=== PATIENT | male | born 1970 ===

== ENCOUNTER 2021-02-20 16:28 | Inpatient (IN) | payer MEDICAID, SELFPAY ==
--- NOTE | ~2021-02-20 | CT_ITS ---
EXAMINATION: CT ANGIOGRAM HEAD CLINICAL INFORMATION: Left MCA disease. Left MCA territory infarct by MRI. COMPARISON: Brain MRI from 02/21/2021. TECHNIQUE: Initial noncontrast chocolate dipper imaging of the head was performed. Noncontrast head CT was also performed. Test bolus sequences followed by intravenous administration 75 mL of Omnipaque 350. Helical imaging was performed in the axial plane from the skull base to the skull vertex. Delayed postcontrast imaging of the head was also performed. The data was processed at the charge histotechnologist's workstation for generation of MIP sequences. Angled MIPs and volume rendered reformatted images were also generated at an offline 3D workstation. Stenoses are assessed in accordance with NASCET criteria unless otherwise indicated. This CT examination was performed using dose optimization techniques as appropriate, variously including the following: *Automated exposure control. *Adjustment of mA and/or kV according to patient size (this includes techniques or standardized protocols for targeted exams where dose is matched to indication/reason for exam; i.e. extremities or head). *Use of iterative reconstruction technique. DLP: 2812 mGy-cm FINDINGS: CT Head: Multifocal evolving infarcts of the left frontoparietal lobes correlating with findings on recent MRI. No evidence of hemorrhagic conversion. No additional loss of mcwilliams-white matter differentiation. No evidence of acute intracranial hemorrhage. No additional attenuation abnormalities of the brain parenchyma. The ventricles are normal in size and configuration. No evidence for obstructive hydrocephalus. No abnormal mass effect or midline shift. No extra-axial fluid collections. No pathologic intra-axial enhancement. No acute soft tissue or osseous abnormalities. Moderate mucosal thickening of the paranasal sinuses. The mastoid air cells and middle ear cavities are clear. Moderate multifocal odontogenic enamel erosions. Brain CTA: Intracranial Internal Carotid Arteries: Mild calcific atherosclerotic disease of the intracranial internal carotid arteries without occlusion or flow-limiting stenosis. Normal contrast opacification of the petrous, cavernous, paraophthalmic, and supraclinoid segments of the internal carotid arteries without focal stenosis. Right Anterior Cerebral Artery: Normal A1 segment. Normal opacification of the distal segments of the KAE. Left Anterior Cerebral Artery: Normal A1 segment. Normal opacification of the distal segments of the KAE. Anterior Communicating Artery: Normal. Right Middle Cerebral Artery: Normal opacification of the M1 segment of the MCA without focal stenosis or occlusion. Normal arborization of the distal segments. Left Middle Cerebral Artery: Diminished opacification of the proximal M1 segment. There is high-grade stenosis of the distal M1 segment. Normal arborization of the distal segments. Right Vertebral Artery: Normal opacification of the V4 segment. Normal opacification of the proximal segments of the posterior inferior cerebellar artery. Left Vertebral Artery: Normal opacification of the V4 segment. Normal opacification of the proximal segments of the posterior inferior cerebellar artery. Basilar Artery: Normal opacification without focal stenosis or occlusion. Normal appearance of the proximal superior cerebellar arteries. Right Posterior Cerebral Artery: The P1 segment is diminutive. origin of the VISUAL DESIGNER with robust opacification of the posterior communicating artery. Normal opacification of the distal segments of the VISUAL DESIGNER. Left Posterior Cerebral Artery: Normal P1 segment. Normal opacification of the distal segments of the VISUAL DESIGNER. Normal opacification of the superior sagittal, straight, transverse, and sigmoid sinuses. CT/CT angio head IMPRESSION: 1. Evolving acute infarcts of the left frontoparietal lobes, correlating with findings on recent MRI. No hemorrhagic conversion. 2. High-grade stenosis of the distal M1 segment of the left MCA. 3. No additional proximal occlusion or flow-limiting stenosis of the major intracranial arteries.
--- NOTE | ~2021-02-20 | XR_ITS ---
EXAMINATION: XR CHEST CLINICAL INFORMATION: Aphasia. Chest pain. COMPARISON: None TECHNIQUE: 2 views of the chest were obtained. FINDINGS: The lungs are well expanded. There is no focal consolidation, edema, or effusion. No pneumothorax. The cardiomediastinal silhouette is within normal limits. No acute osseous abnormality. XR/XR chest 2V IMPRESSION: No acute pulmonary finding.
--- NOTE | ~2021-02-20 | US_ITS ---
EXAMINATION: US EXTRACRANIAL CAROTID DUPLEX, BILATERAL CLINICAL INFORMATION: CVA. Aphasia/speech difficulties COMPARISON: None TECHNIQUE: Real-time ultrasound and Doppler techniques (integrating B-mode 2-D vascular images, Doppler spectral analysis and color-flow Doppler imaging) were utilized to interrogate the extracranial carotid arteries, the vertebral arteries and proximal subclavian arteries bilaterally. The degree of stenosis is determined by criteria similar to NASCET. FINDINGS: Right Side: 1. There is no atherosclerotic plaque seen in the bifurcation/proximal ICA region. 2. The common carotid artery PSV proximally is 114 cm/s and distally 78 cm/s. 3. The proximal internal carotid artery velocities are 74 cm/s systolic and 20 cm/s diastolic. 4. The proximal external carotid artery PSV is 92 cm/s. 5. The vertebral artery shows antegrade flow. 6. The subclavian artery waveforms are normal. Left Side: 1. There is no atherosclerotic plaque seen in the bifurcation/proximal ICA region. 2. The common carotid artery PSV proximally is 134 cm/s and distally 84 cm/s. 3. The proximal internal carotid artery velocities are 55 cm/s systolic and 17 cm/s diastolic. 4. The proximal external carotid artery PSV is 99 cm/s. 5. The vertebral artery shows antegrade flow. 6. The subclavian artery waveforms are normal in waveform normal. US/US carotid duplex BI IMPRESSION: 1. RIGHT: Normal right internal carotid artery without atherosclerotic plaque or hemodynamically significant stenosis. 2. LEFT: Normal left internal carotid artery without atherosclerotic plaque or hemodynamically significant stenosis.
--- NOTE | ~2021-02-20 | MR_ITS ---
EXAMINATION: BRAIN MRI WITHOUT CONTRAST CLINICAL INFORMATION: Speech difficulty. COMPARISON: CT scan of the head 02/20/2021. TECHNIQUE: Multiplanar MR imaging of the brain was attempted. The patient was unable to tolerate imaging of the examination was terminated prematurely. The diagnostic accuracy of this examination is therefore limited. FINDINGS: There are multiple punctate foci of restricted diffusion involving the cortical mcwilliams matter of the left cerebral hemisphere and the left centrum semiovale that appear to be distributed between the major vascular territories. Intracranial vascular flow voids are grossly maintained. No intracranial mass effect or midline shift. No abnormal extra-axial collection. Lateral and third ventricles are normal. No hydrocephalus. Midline structures including the cervicomedullary junction are normal. MR/MR head/brain wo con IMPRESSION: The patient was unable to tolerate imaging. The examination was terminated prematurely and is therefore incomplete. There are however multiple acute infarcts involving the cortical mcwilliams matter of the left cervical hemisphere and left centrum semiovale that appear to be distributed between the major vascular territories suggesting watershed infarcts. Vascular flow voids within the head are grossly maintained. A carotid ultrasound or a CT angiogram of the neck can be obtained for better anatomic characterization of the vascular anatomy.
--- NOTE | ~2021-02-20 | CT_ITS ---
EXAMINATION: CT HEAD WITHOUT CONTRAST CLINICAL INFORMATION: Expressive aphasia for 3 days. Rule out stroke. COMPARISON: 08/14/2006 TECHNIQUE: Contiguous axial imaging was performed from the skull base to vertex without intravenous contrast. This CT examination was performed using dose optimization techniques as appropriate, variously including the following: * Automated exposure control * Adjustment of mA and/or kV according to patient size (this includes techniques or standardized protocols for targeted exams where dose is matched to indication/reason for exam; i.e. extremities or head) Use of iterative reconstruction technique DLP: 817 mGy-cm. FINDINGS: There is no evidence of acute intracranial hemorrhage or territorial infarction. No abnormal mass effect or midline shift is seen. [place] to white matter differentiation is well preserved. No extra-axial fluid collections are identified. No hydrocephalus. No significant volume loss. There is no abnormal attenuation within the brain parenchyma. The osseous structures and soft tissues are normal. Mucous retention cyst of the left sphenoid sinus. The mastoid air cells and visualized portions of the paranasal sinuses are otherwise well aerated. CT/CT head/brain wo con IMPRESSION: No acute intracranial pathology.
[2021-02-20 17:25] VITALS: BP 168/86; PULSE 81; RESP 16; TEMP 36.6; O2SAT 97; BMI 33.6
[2021-02-20 19:52] VITALS: BP 139/82; PULSE 83; O2SAT 99
--- NOTE | 2021-02-20 20:01 | ED.GENADULT ---
HPI - General Adult General Chief complaint: General Medical Stated complaint: PT unable to speak full words since Friday Time Seen by Provider: 02/20/21 17:29 Source: patient Mode of arrival: ambulatory Limitations: no limitations History of Present Illness HPI narrative: 50-year-old male who presents emergency department for evaluation of difficulty speaking. The patient states that he woke up Friday morning (3 days prior to evaluation) with difficulty finding words and difficulty speaking. He states that these symptoms have persisted but of not gotten worse. He was concerned that he did not improve so he came to the emergency department for evaluation. He states that approximately 1 week prior he did injure his back at work and is having a burning sensation in numbness in his right leg with no weakness and no loss of bowel or bladder control. He he denied headache, neck pain, fever, chills, chest pain, shortness of breath, dyspnea on exertion, abdominal pain, nausea, vomiting or diarrhea. The patient has not been vaccinated for COVID-19. He states that he has not had a COVID-19 infection during this pandemic. Related Data Allergies Allergy/AdvReac Type Severity Reaction Status Date / Time No Known Allergies Allergy Unverified 02/24/20 16:38 Review of Systems Review of Systems: Yes all other systems are reviewed and are negative Neurologic: Reports Abnormal speech present [facility] Past Medical History [facility] Narrative: Past medical history: None. Past surgical history: None. Social history: He denies tobacco use. He denies alcohol use. He states he occasionally smokes marijuana. Social History Social History Alcohol intake: current Alcohol intake frequency: holidays/special occasions only Patient Tobacco Use Status: Never used Tobacco Use of substances other than those prescribed or required for medical reasons: Yes Substance Use Type: Marijuana Substance Use Frequency: Occasionally Advance Directives: No Advance Directives Information Provided: Yes Physical Exam Vital Signs: Vital Signs: Last Vital Signs Temp 98 F 02/20/21 17:25 Pulse 83 02/20/21 19:52 Resp 16 02/20/21 17:25 BP 139/82 02/20/21 19:52 Pulse Ox 99 02/20/21 19:52 Body Mass Index 33.6 Const: Other: Very pleasant and cooperative male, the patient is able to speak however he occasionally has difficulty finding the appropriate words. He answers all questions appropriately. He does not appear to be in distress. Orientation/consciousness: oriented to person and oriented to place HENMT: Head: Yes normal to inspection, Yes normocephalic and Yes atraumatic Ears: external ears normal General nose exam: Normal external nose present Face and sinus: Yes normal facial exam Mouth: Normal oral and palatal mucosa present Throat: Yes posterior oropharynx normal Eyes: General: appearance normal, both eyes and all related structures Pupils: Equal, round and reactive pupils present Neck: Neck: Yes normal visual inspection, Yes no lymphadenopathy, Yes trachea midline and Yes supple Chest: Chest palpation & inspection: normal inspection of the chest and normal palpation of entire chest wall Resp: Effort & Inspection: normal respiratory effort and able to speak in complete sentences Auscultation: clear to auscultation bilaterally Cardio: Rate: regular rate Rhythm: regular rhythm Heart sounds: S1 normal heart sound present, S2 normal heart sound present and no murmurs GI: Inspection: Yes normal to inspection Palpation (GI): Soft to palpation, nontender and no guarding Auscultation: normal bowel sounds : General: Yes no CVA tenderness Back/Spine/Pelvis: Back: no CVA tenderness Skin: General skin exam: no rashes or lesions noted Neuro: General: oriented to person and oriented to place Cranial nerves: Yes CN's II-XII intact bilaterally and Yes Equal, round and reactive pupils present Cognition (Neuro): normal cognition Speech: Abnormal speech present and Expressive aphasia present (Patient occasionally has difficulty finding the appropriate words ) Motor exam (neuro): 5/5 motor strength present throughout Coordination: [id number] test normal and [id number] test normal Extrem: General: Yes normal to inspection Psych: Appearance: grossly normal Affect: normal affect Attitude: cooperative Thought process: Normal thought process present Thought content: Normal thought content present NIH Stroke Scale Internal: Other (At the time of my initial evaluation) Level of Consciousness: Alert Level of Consciousness Questions: Answers both questions correctly Level of Consciousness Commands: Performs both tasks correctly Best Gaze: Normal Visual: No visual loss Facial Palsy: Normal Motor Arm (Right): No drift Motor Arm (Left): No drift Motor Leg (Right): No drift Motor Leg (Left): No drift Limb Ataxia: Absent Sensory: Normal Best Language: Mild to moderate aphasia Dysarthia: Normal Extinction and Inattention: No abnormality Score: 1 Course Course Course Narrative: 50-year-old male who presents emergency department for evaluation of an expressive aphasia which states started on Friday morning (3 days prior to evaluation). States that he woke up having difficulty finding words and difficulty talking. The symptoms have persisted for 3 days but have not gotten worse. The patient did complain of discomfort in his right lower extremity which she believes is secondary to a back injury that occurred 1 week prior. Patient's vital signs were normal. Physical examination did reveal difficulty with word-finding but his speech is mainly comprehensible and appropriate. His exam was otherwise unremarkable. IM the patient may have had a stroke 3 days prior causing his aphasia, cerebral tumor also needs to be considered. I did order a stroke workup on the patient. 2151: CT scan and the head was unremarkable with no evidence of stroke or mass effect. Chest x-ray was normal. Laboratory evaluation was normal. Twelve EKG 12 EKG revealed no arrhythmia/atrial fibrillation. I am concerned the patient may have had a stroke however he has had the symptoms for 3 days therefore is not a thrombolytic candidate. The patient was given aspirin 162 mg orally. I did discuss the patient's presentation with the covering hospitalist Dr. Blank and the patient will be admitted [place] [facility] [place]. Medical Decision Making Lab Data Result diagrams: 02/20/21 21:15 02/20/21 21:15 Labs: Lab Results 02/20/21 02/20/21 02/20/21 Range/Units 21:15 21:15 21:15 WBC 7.7 (4.8-10.8) X10*3/uL RBC 4.75 (4.60-5.80) X10*6/uL Hgb 14.7 (14.0-18.0) g/dl Hct 43.7 (42-52) % MCV 92.0 (80-98) fL MCH 30.9 (27.0-33.0) pg MCHC 33.6 (31.0-36.0) g/dl RDW 12.8 (11.0-16.0) % Plt Count 296 (160-400) X10*3/uL MPV 9.9 (9.4-12.4) fL Immature Gran % (Auto) 0.1 (0.0-0.4) % Neut % (Auto) 57.1 (45-73) % Lymph % (Auto) 32.6 (20-40) % [place] % (Auto) 7.7 (2-11) % Eos % (Auto) 2.1 (0-4) % Baso % (Auto) 0.4 (0-2) % Lymph # (Auto) 2.5 (1.2-4.9) X10*3/uL [place] # (Auto) 0.6 (0.1-1.2) X10*3/uL Eos # (Auto) 0.2 (0.0-0.4) X10*3/uL Baso # (Auto) 0.0 (0.0-0.2) X10*3/uL Abs Immat Gran (auto) 0.01 (0.00-0.03) X10*3/uL Absolute Neuts (auto) 4.4 (2.0-8.3) X10*3/uL Absolute Nucleated RBC 0.000 (0.0-0.012) X10*3/uL Nucleated RBC % (auto) 0.0 (0.0-0.2) /100WBC PT 12.2 (9.9-13.0) SEC INR 1.1 (0.9-1.1) APTT 36.4 (24.1-38.0) SEC Sodium 141 (135-145) mmol/L Potassium 4.1 (3.3-5.1) mmol/L Chloride 106 (96-108) mmol/L Carbon Dioxide 27 (22-29) mmol/L Anion Gap 12 (12-20) BUN 11 (9-16) mg/dL Creatinine 0.93 (0.5-1.4) mg/dL Estim Creat Clear Calc 103.3 Estimated GFR > 60 Random Glucose 111 (60-115) mg/dL Calcium 9.3 (8.4-10.2) mg/dL Total Bilirubin 0.4 (0.0-1.0) mg/dL AST 21 (5-37) U/L ALT 31 (0-40) U/L Alkaline Phosphatase 99 (39-117) U/L Troponin I High Sens (<3.5-35.0) ng/L Total Protein 7.3 (6.5-8.0) g/dL Albumin 3.9 (3.5-5.0) g/dL Lipase 60 (8-78) U/L Ethyl Alcohol mg/dL 02/20/21 02/20/21 Range/Units 21:15 21:15 WBC (4.8-10.8) X10*3/uL RBC (4.60-5.80) X10*6/uL Hgb (14.0-18.0) g/dl Hct (42-52) % MCV (80-98) fL MCH (27.0-33.0) pg MCHC (31.0-36.0) g/dl RDW (11.0-16.0) % Plt Count (160-400) X10*3/uL MPV (9.4-12.4) fL Immature Gran % (Auto) (0.0-0.4) % Neut % (Auto) (45-73) % Lymph % (Auto) (20-40) % [place] % (Auto) (2-11) % Eos % (Auto) (0-4) % Baso % (Auto) (0-2) % Lymph # (Auto) (1.2-4.9) X10*3/uL [place] # (Auto) (0.1-1.2) X10*3/uL Eos # (Auto) (0.0-0.4) X10*3/uL Baso # (Auto) (0.0-0.2) X10*3/uL Abs Immat Gran (auto) (0.00-0.03) X10*3/uL Absolute Neuts (auto) (2.0-8.3) X10*3/uL Absolute Nucleated RBC (0.0-0.012) X10*3/uL Nucleated RBC % (auto) (0.0-0.2) /100WBC PT (9.9-13.0) SEC INR (0.9-1.1) APTT (24.1-38.0) SEC Sodium (135-145) mmol/L Potassium (3.3-5.1) mmol/L Chloride (96-108) mmol/L Carbon Dioxide (22-29) mmol/L Anion Gap (12-20) BUN (9-16) mg/dL Creatinine (0.5-1.4) mg/dL Estim Creat Clear Calc Estimated GFR Random Glucose (60-115) mg/dL Calcium (8.4-10.2) mg/dL Total Bilirubin (0.0-1.0) mg/dL AST (5-37) U/L ALT (0-40) U/L Alkaline Phosphatase (39-117) U/L Troponin I High Sens < 3.5 (<3.5-35.0) ng/L Total Protein (6.5-8.0) g/dL Albumin (3.5-5.0) g/dL Lipase (8-78) U/L Ethyl Alcohol < 10 mg/dL
--- NOTE | 2021-02-20 20:03 | ECG_ITS ---
Test Reason : AMS Blood Pressure : / mmHG Vent. Rate : 076 BPM Atrial Rate : 076 BPM P-R Int : 156 ms QRS Dur : 082 ms QT Int : 398 ms P-R-T Axes : 030 -07 009 degrees QTc Int : 447 ms Normal sinus rhythm Normal ECG No previous ECGs available Referred By: Terrance Moya Electronically Signed By:HENNA FLAHERTY
[2021-02-20 21:20] LABS: MANUAL DIFF FLAG NO
[2021-02-20 21:27] LABS: INTERNATIONAL NORM RATIO 1.1 (0.9-1.1); Prothrombin Time 12.2 SEC (9.9-13.0)
[2021-02-20 21:28] LABS: Basophils Percent Auto 0.4 % (0-2); Eosinophils Absolute Auto 0.2 X10*3/uL (0.0-0.4); Eosinophils Percent Auto 2.1 % (0-4); Hematocrit 43.7 % (42-52); Hemoglobin 14.7 g/dl (14.0-18.0); Imm Gran Abs Auto 0.01 X10*3/uL (0.00-0.03); Imm Gran Pct Auto 0.1 % (0.0-0.4); Lymphocytes Absolute Auto 2.5 X10*3/uL (1.2-4.9); Lymphocytes Percent Auto 32.6 % (20-40); Mean Corpuscular HGB Conc 33.6 g/dl (31.0-36.0); Mean Corpuscular Hemoglobin 30.9 pg (27.0-33.0); Mean Platelet Volume 9.9 fL (9.4-12.4); Monocytes Absolute Auto 0.6 X10*3/uL (0.1-1.2); Monocytes Percent Auto 7.7 % (2-11); Neutrophils Absolute Auto 4.4 X10*3/uL (2.0-8.3); Neutrophils Percent Auto 57.1 % (45-73); Platelet Count 296 X10*3/uL (160-400); Red Blood Count 4.75 X10*6/uL (4.60-5.80); Red Cell Distribution Width 12.8 % (11.0-16.0); White Blood Count 7.7 X10*3/uL (4.8-10.8)
[2021-02-20 21:30] LABS: Partial Thromboplastin Time 36.4 SEC (24.1-38.0)
[2021-02-20 21:38] LABS: Ethanol < 10 mg/dL
[2021-02-20 21:42] LABS: Alanine Aminotransferase 31 U/L (0-40); Albumin Level 3.9 g/dL (3.5-5.0); Alkaline Phosphatase 99 U/L (39-117); Anion Gap 12 (12-20); Aspartate Amino Transferase 21 U/L (5-37); Bilirubin Total 0.4 mg/dL (0.0-1.0); Blood Urea Nitrogen 11 mg/dL (9-16); Calcium 9.3 mg/dL (8.4-10.2); Carbon Dioxide 27 mmol/L (22-29); Chloride 106 mmol/L (96-108); Creatinine Clr Calc Pharmacy 103.3; Estimated Glomerular Filt Rate > 60; Glucose Random 111 mg/dL (60-115); Lipase 60 U/L (8-78); Potassium 4.1 mmol/L (3.3-5.1); Sodium 141 mmol/L (135-145); Total Protein 7.3 g/dL (6.5-8.0)
[2021-02-20 21:44] LABS: Troponin-I High Sensitivity < 3.5 ng/L (<3.5-35.0)
[2021-02-20 22:01] LABS: TSH reflex Free T4 0.94 uIU/mL (0.32-4.0)
--- NOTE | 2021-02-20 22:07 | PM.IMHP ---
History of Present Illness Date of Service: 02/20/21 Chief Complaint: Word-finding difficulty 50-year-old male with no significant past medical history presented to the hospital with a chief complaint of word-finding difficulty. Patient reported that on last Friday he was doing fine but on Friday morning when he woke up he was difficulty with finding words. Initially thought the symptoms would go away but the symptoms have been continued and not improving decided to come to the ER for further evaluation. Denies any oral pain; denies any swallowing difficulty; mentions that he is able to comprehend but he is listening but unable to put out the words and does difficulty finding words; Denies any family history of CV are heart disease. Denies any toxic habits including smoking. Patient reports that for the past 1 week has mild left lower extremity weakness; denies any low back pain. Denies any trauma. ER course Per team patient noted to have word-finding difficulty; CT head showed no acute findings; admitted to the hospital further management PMFSH Social History Alcohol intake: current Alcohol intake frequency: holidays/special occasions only Patient Tobacco Use Status: Never used Tobacco Use of substances other than those prescribed or required for medical reasons: Yes Substance Use Type: Marijuana Substance Use Frequency: Occasionally Advance Directives: No Advance Directives Information Provided: Yes Meds Allergies Allergy/AdvReac Type Severity Reaction Status Date / Time No Known Allergies Allergy Unverified 02/24/20 16:38 Physical Exam Vital Signs and Narrative: Vital Signs: Last Vital Signs Temp 98 F 02/20/21 17:25 Pulse 83 02/20/21 19:52 Resp 16 02/20/21 17:25 BP 139/82 02/20/21 19:52 Pulse Ox 99 02/20/21 19:52 Body Mass Index 33.6 Gen: Appears be in no acute distress HEENT: NCAT, Moist mucosa. Pulmonary: Vesicular breath sounds, fair air entry CVS: Normal S1-S2 Abdomen: BS+, Soft, Nontender Extremities: Warm well perfused Neuro: Alert and awake. Oriented x3; ; strength and sensation intact throughout. Speech is started. Patient able to comprehend but unable to put out the words. In Results Labs CBC and Chem 7: 02/20/21 21:15 02/20/21 21:15 Labs: Laboratory Results - last 24 hr 02/20/21 02/20/21 02/20/21 21:15 21:15 21:15 MCV 92.0 MCH 30.9 MCHC 33.6 RDW 12.8 Plt Count 296 MPV 9.9 Immature Gran % (Auto) 0.1 Neut % (Auto) 57.1 Lymph % (Auto) 32.6 [place] % (Auto) 7.7 Eos % (Auto) 2.1 Baso % (Auto) 0.4 Lymph # (Auto) 2.5 [place] # (Auto) 0.6 Eos # (Auto) 0.2 Baso # (Auto) 0.0 Abs Immat Gran (auto) 0.01 Absolute Neuts (auto) 4.4 Absolute Nucleated RBC 0.000 Nucleated RBC % (auto) 0.0 PT 12.2 INR 1.1 APTT 36.4 Anion Gap 12 Estim Creat Clear Calc 103.3 Estimated GFR > 60 Random Glucose 111 Calcium 9.3 Total Bilirubin 0.4 AST 21 ALT 31 Alkaline Phosphatase 99 Troponin I High Sens Total Protein 7.3 Albumin 3.9 Lipase 60 TSH 0.94 Ethyl Alcohol 02/20/21 02/20/21 21:15 21:15 MCV MCH MCHC RDW Plt Count MPV Immature Gran % (Auto) Neut % (Auto) Lymph % (Auto) [place] % (Auto) Eos % (Auto) Baso % (Auto) Lymph # (Auto) [place] # (Auto) Eos # (Auto) Baso # (Auto) Abs Immat Gran (auto) Absolute Neuts (auto) Absolute Nucleated RBC Nucleated RBC % (auto) PT INR APTT Anion Gap Estim Creat Clear Calc Estimated GFR Random Glucose Calcium Total Bilirubin AST ALT Alkaline Phosphatase Troponin I High Sens < 3.5 Total Protein Albumin Lipase TSH Ethyl Alcohol < 10 Imaging Radiologist's Impressions: Impressions Chest X-Ray 02/20/21 20:03 IMPRESSION: No acute pulmonary finding. Head CT 02/20/21 20:03 IMPRESSION: No acute intracranial pathology. Assessment and Plan (1) Word finding difficulty: Status: Acute 50-year-old male with no significant past medical history presented to the hospital with a chief complaint word-finding difficulty since last Friday. Word-finding difficulty: Concern for CVA. CT head showed no acute findings. Patient out of went over tPA. Rest of the exam within normal limits. Speech And swallow eval Dysphagia screen Echocardiogram bubble study Telemetry Cycle cardiac enzymes Will send hemoglobin A1c, lipid profile, TSH Continue aspirin Neurology consult Left leg weakness/numbness: Exam within normal limits. Neurology consulted as mentioned. No focal spinal tenderness noted. DVT prophylaxis: SCD boots Code status: Full code Quality Stroke Does the patient have a stroke diagnosis?: No VTE Prior VTE?: No VTE Risk Level:: Medical - moderate - high VTE Device Contraindication: N/A - Device Ordered VTE Drug Contraindication: Treatment Not Indicated
[2021-02-20 22:13] LABS: COVID-19 Test Negative (Negative); IDNOW Serial# 9DD0AD1C
[2021-02-20] MEDS: Aspirin 81 MG TAB.CHEW 162 MG PO (22:49)
[2021-02-20 22:53] VITALS: PULSE 81; RESP 17; O2SAT 98
[2021-02-20 23:05] LABS: Appearance Urine CLEAR; Color Urine YELLOW; Glucose Urine UA NEG (NEG); Leukocyte Esterase Urine NEG (NEG); Nitrite Urine NEG (NEG); Urine Blood NEG (NEG); Urine Ketones NEG (NEG); Urine Protein NEG (NEG-TRACE)
[2021-02-20 23:15] LABS: Amphetamine Screen Urine Not Detected (Not Detect); Barbiturates, Urine Not Detected (Not Detect); Benzodiazepines Screen Urine Not Detected (Not Detect); Cannabinoid Screen Urine POSITIVE (Not Detect); Cocaine Screen Urine POSITIVE (Not Detect); Fentanyl, urine Not Detected (Not Detect); Opiate Screen Urine Not Detected (Not Detect); Phencyclidine Screen Urine Not Detected (Not Detect)
[2021-02-20 23:23] LABS: Troponin-I High Sensitivity < 3.5 ng/L (<3.5-35.0)
[2021-02-21] VITALS (7 sets, daily range): BP systolic 124–156; BP diastolic 76–94; PULSE 78–84; RESP 16–20; TEMP 36.3–36.7; O2SAT 97–99; BMI 33.6
--- NOTE | 2021-02-21 06:10 | PC.NURSE ---
pt talking in full sentences but still finds it difficulty finding his words. pt states its a no change since his arrival.
[2021-02-21 06:48] LABS: MANUAL DIFF FLAG NO
[2021-02-21 06:56] LABS: Basophils Percent Auto 0.3 % (0-2); Eosinophils Absolute Auto 0.2 X10*3/uL (0.0-0.4); Eosinophils Percent Auto 2.3 % (0-4); Hemoglobin 14.4 g/dl (14.0-18.0); Imm Gran Abs Auto 0.02 X10*3/uL (0.00-0.03); Imm Gran Pct Auto 0.3 % (0.0-0.4); Lymphocytes Percent Auto 38.9 % (20-40); Mean Corpuscular HGB Conc 33.5 g/dl (31.0-36.0); Mean Corpuscular Hemoglobin 30.4 pg (27.0-33.0); Mean Corpuscular Volume 90.9 fL (80-98); Mean Platelet Volume 10.2 fL (9.4-12.4); Monocytes Absolute Auto 0.6 X10*3/uL (0.1-1.2); Monocytes Percent Auto 7.9 % (2-11); Neutrophils Absolute Auto 3.9 X10*3/uL (2.0-8.3); Neutrophils Percent Auto 50.3 % (45-73); Platelet Count 307 X10*3/uL (160-400); Red Blood Count 4.73 X10*6/uL (4.60-5.80); Red Cell Distribution Width 12.7 % (11.0-16.0); White Blood Count 7.8 X10*3/uL (4.8-10.8)
[2021-02-21 07:12] LABS: Anion Gap 12 (12-20); Blood Urea Nitrogen 9 mg/dL (9-16); Calcium 8.8 mg/dL (8.4-10.2); Carbon Dioxide 24 mmol/L (22-29); Chloride 108 mmol/L (96-108); Cholesterol 193 mg/dL; Creatinine Clr Calc Pharmacy 115.8; Estimated Glomerular Filt Rate > 60; Glucose Random 110 mg/dL (60-115); HDL Cholesterol 40 mg/dL; LDL Cholesterol Calculated 130 mg/dl; Potassium 3.6 mmol/L (3.3-5.1); Sodium 140 mmol/L (135-145); Triglycerides 119 mg/dL
[2021-02-21 08:24] LABS: Estimated Average Glucose 143 mg/dL; Hemoglobin A1c % 6.6 %
--- NOTE | 2021-02-21 09:56 | P.CNNE_ITS ---
History of Present Illness Data of Consult Service Date: 02/21/21 Primary Care Provider: Unknown Physician HPI Reason for consult: Word-finding difficulty 50 years old man who came to hospital stating that the other day he woke up and could not speak. He said that no were was coming out. He stated that this was still the case. He denied any associated headache numbness paralysis dizziness or visual symptom or any other symptom. There was no mental confusion. Review of Systems Review of Systems: No recent cold or flu-like symptoms. [facility] Social History Social History Alcohol intake: current Alcohol intake frequency: holidays/special occasions only Patient Tobacco Use Status: Never used Tobacco Use of substances other than those prescribed or required for medical reasons: Yes Substance Use Type: Marijuana Substance Use Frequency: Occasionally Advance Directives: No Advance Directives Information Provided: Yes Meds Allergies Allergy/AdvReac Type Severity Reaction Status Date / Time No Known Allergies Allergy Unverified 02/24/20 16:38 Active Medications: Current Medications Generic Name Dose Route Start Last Admin Trade Name Freq PRN Reason Stop Dose Admin Acetaminophen 650 mg 02/20/21 22:03 Acetaminophen 325 Mg Tablet PO Q6H PRN Pain, Mild (Pain Scale 1-3) Aspirin 81 mg 02/21/21 09:00 Aspirin Enteric Coated 81 Mg Tablet.Dr PO DAILY [facility] Melatonin 6 mg 02/20/21 22:03 Melatonin 3 Mg Tablet PO BEDTIME PRN Insomnia Senna 17.2 mg 02/20/21 22:03 Sennosides 8.6 Mg Tablet PO BEDTIME PRN Constipation Sodium Chloride 3 ml 02/21/21 00:00 02/21/21 00:10 0.9 % Sodium Chloride Flush 3 Ml Syringe IVFLUSH Not Given QSHIFT [facility] Physical Exam Vital Signs: Vital Signs: Last Vital Signs Temp 98.0 F 02/21/21 07:15 Pulse 81 02/21/21 07:43 Resp 16 02/21/21 07:15 BP 124/77 02/21/21 07:43 Pulse Ox 98 02/21/21 07:43 Body Mass Index 33.6 Neuro: Other: He was alert and awake with intermittently sometime good fluency and spontaneity of speech and sometime decrease. He was able to name and repeat. Sometime his speech was dysarthric. Face was symmetrical. Visual boone are full. There was no pronator drift. Deep tendon reflexes were trace to absent with flexor plantars. Results Labs CBC & Chem 7: 02/21/21 06:23 02/21/21 06:23 Labs: Short CBC 02/20/21 02/21/21 Range/Units 21:15 06:23 WBC 7.7 7.8 (4.8-10.8) X10*3/uL Hgb 14.7 14.4 (14.0-18.0) g/dl Hct 43.7 43.0 (42-52) % Plt Count 296 307 (160-400) X10*3/uL BMP 02/20/21 02/21/21 21:15 06:23 Sodium 141 140 Potassium 4.1 3.6 Chloride 106 108 Carbon Dioxide 27 24 BUN 11 9 Creatinine 0.93 0.83 Calcium 9.3 8.8 Liver Function 02/20/21 Range/Units 21:15 Total Bilirubin 0.4 (0.0-1.0) mg/dL AST 21 (5-37) U/L ALT 31 (0-40) U/L Alkaline Phosphatase 99 (39-117) U/L Albumin 3.9 (3.5-5.0) g/dL Urine 02/20/21 Range/Units 22:49 Urine Color YELLOW Urine Appearance CLEAR Urine pH 6.0 (5.0-8.0) Ur Specific [place] 1.010 (1.005-1.025) Urine Protein NEG (NEG-TRACE) MG/DL Urine Glucose (UA) NEG (NEG) MG/DL His head CT without contrast did not reveal any significant abnormality. Carotid ultrasound wet reading was normal. Assessment and Plan (1) Word finding difficulty: Status: Acute 50 years old man with unclear etiology of complained of word-finding difficulty with fluctuating examination. Possibilities would include a structural lesion or psychological. For definition I would suggest obtaining a noncontrast MRI of brain. Procedures Date of Service Date of Service: 02/21/21
--- NOTE | 2021-02-21 10:24 | MHC.CM.PN ---
Met with patient in regards to discharge planning. Patient lives with his , ambulates independently and had no services prior to coming to the hospital. Patient currently works but has no insurance yet because he hasn't been employed long enough. Financial counselors aware and will try to see the patient. Has no PCP. Received no Covid vaccines and has no HCP. Patient's will transport him home when medically stable. Obs notice explained and signed. Continue to monitor for d/c needs.
[2021-02-21] MEDS: Aspirin Enteric Coated 81 MG TABLET.DR PO (11:23)
[2021-02-21] MEDS: 0.9 % Sodium Chloride Flush 3 ML SYRINGE IVFLUSH ×3 (11:24→20:48)
--- NOTE | 2021-02-21 14:43 | MHC.STROKE ---
Addendum entered by Kadie Lovell RN 02/22/21 14:09: Patient was ambulatory, VTE prophylaxis not indicated. Seen by Care Team due to Cocaine (see their note). Patient being discharged today, speech therapy recommended. Original Note: I MET THE PATIENT TODAY AND WE DISCUSSED HIS DIAGNOSIS AND HIS COCAINE USE. HE IS REFUSING ANY HELP WITH THE DRUG USE. I REVIEWED THE RISK FACTORS, HE'S ON AN ASA. ASSESSMENT FOR REHAB DONE. SPEECH IS INDICATED. RECOMMEND STATIN LDL 130. DR PHILLIPS NOTIFIED.
--- NOTE | 2021-02-21 15:07 | HO.PM.IMPN ---
Subjective Subjective Date of Service: 02/21/21 Interval History: expressive aphasia dysarthria no leg or arm weakness re: cocaine abuse: never again Review of Systems Review of Systems: Yes all other systems are reviewed and are negative Physical Exam Vital Signs: Vital Signs: Last Vital Signs Temp 97.4 F 02/21/21 11:16 Pulse 79 02/21/21 11:16 Resp 20 02/21/21 11:16 BP 156/89 H 02/21/21 11:16 Pulse Ox 99 02/21/21 11:16 Body Mass Index 33.6 Gen: in no acute distress HEENT: sclera anicteric, moist mucus membranes Neck: supple Lungs: clear to auscultation bilaterally Heart: regular rate and rhythm, no murmurs Abd: soft, non-tender, non-distended, obese Ext: no edema Skin: warm/well-perfused Neuro: alert and oriented x3, mild expressive aphasia, dysarthric Psych: appropriate affect Objective Data Active Medications Acetaminophen (Acetaminophen 325 Mg Tablet) 650 mg PO Q6H PRN PRN Reason: Pain, Mild (Pain Scale 1-3) Aspirin (Aspirin Enteric Coated 81 Mg Tablet.) 81 mg PO DAILY [facility] Last Admin: 02/21/21 11:23 Dose: 81 mg Documented by: LALO Atorvastatin Calcium (Atorvastatin Calcium 40 Mg Tablet) 40 mg PO BEDTIME [facility] Melatonin (Melatonin 3 Mg Tablet) 6 mg PO BEDTIME PRN PRN Reason: Insomnia Senna (Sennosides 8.6 Mg Tablet) 17.2 mg PO BEDTIME PRN PRN Reason: Constipation Sodium Chloride (0.9 % Sodium Chloride Flush 3 Ml Syringe) 3 ml IVFLUSH QSHIFT [facility] Last Admin: 02/21/21 11:24 Dose: 3 ml Documented by: LALO Labs CBC & Chem 7: 02/21/21 06:23 02/21/21 06:23 Labs: Laboratory Results - last 24 hr 02/20/21 02/20/21 02/20/21 21:15 21:15 21:15 MCV 92.0 MCH 30.9 MCHC 33.6 RDW 12.8 Plt Count 296 MPV 9.9 Immature Gran % (Auto) 0.1 Neut % (Auto) 57.1 Lymph % (Auto) 32.6 [place] % (Auto) 7.7 Eos % (Auto) 2.1 Baso % (Auto) 0.4 Lymph # (Auto) 2.5 [place] # (Auto) 0.6 Eos # (Auto) 0.2 Baso # (Auto) 0.0 Abs Immat Gran (auto) 0.01 Absolute Neuts (auto) 4.4 Absolute Nucleated RBC 0.000 Nucleated RBC % (auto) 0.0 PT 12.2 INR 1.1 APTT 36.4 Anion Gap 12 Estim Creat Clear Calc 103.3 Estimated GFR > 60 Random Glucose 111 Estimat Average Glucose Hemoglobin A1c % Calcium 9.3 Total Bilirubin 0.4 AST 21 ALT 31 Alkaline Phosphatase 99 Troponin I High Sens Total Protein 7.3 Albumin 3.9 Triglycerides Cholesterol LDL Cholesterol, Calc HDL Cholesterol Lipase 60 TSH 0.94 Urine Color Urine Appearance Urine pH Ur Specific [place] Urine Protein Urine Glucose (UA) Urine Ketones Urine Blood Urine Nitrite Ur Leukocyte Esterase Urine Opiates Screen Urine Fentanyl Screen Ur Barbiturates Screen Ur Phencyclidine Scrn Ur Amphetamines Screen U Benzodiazepines Scrn Urine Cocaine Screen U Marijuana (THC) Screen Ethyl Alcohol COVID-19 (VINNIE) COVID-[employer] Com 02/20/21 02/20/21 02/20/21 21:15 21:15 21:15 MCV MCH MCHC RDW Plt Count MPV Immature Gran % (Auto) Neut % (Auto) Lymph % (Auto) [place] % (Auto) Eos % (Auto) Baso % (Auto) Lymph # (Auto) [place] # (Auto) Eos # (Auto) Baso # (Auto) Abs Immat Gran (auto) Absolute Neuts (auto) Absolute Nucleated RBC Nucleated RBC % (auto) PT INR APTT Anion Gap Estim Creat Clear Calc Estimated GFR Random Glucose Estimat Average Glucose Hemoglobin A1c % Calcium Total Bilirubin AST ALT Alkaline Phosphatase Troponin I High Sens < 3.5 Total Protein Albumin Triglycerides Cholesterol LDL Cholesterol, Calc HDL Cholesterol Lipase TSH Urine Color Urine Appearance Urine pH Ur Specific [place] Urine Protein Urine Glucose (UA) Urine Ketones Urine Blood Urine Nitrite Ur Leukocyte Esterase Urine Opiates Screen Urine Fentanyl Screen Ur Barbiturates Screen Ur Phencyclidine Scrn Ur Amphetamines Screen U Benzodiazepines Scrn Urine Cocaine Screen U Marijuana (THC) Screen Ethyl Alcohol < 10 COVID-19 (VINNIE) Negative COVID-19 Clin Com See Note 02/20/21 02/20/21 02/20/21 22:49 22:49 22:52 MCV MCH MCHC RDW Plt Count MPV Immature Gran % (Auto) Neut % (Auto) Lymph % (Auto) [place] % (Auto) Eos % (Auto) Baso % (Auto) Lymph # (Auto) [place] # (Auto) Eos # (Auto) Baso # (Auto) Abs Immat Gran (auto) Absolute Neuts (auto) Absolute Nucleated RBC Nucleated RBC % (auto) PT INR APTT Anion Gap Estim Creat Clear Calc Estimated GFR Random Glucose Estimat Average Glucose Hemoglobin A1c % Calcium Total Bilirubin AST ALT Alkaline Phosphatase Troponin I High Sens < 3.5 Total Protein Albumin Triglycerides Cholesterol LDL Cholesterol, Calc HDL Cholesterol Lipase TSH Urine Color YELLOW Urine Appearance CLEAR Urine pH 6.0 Ur Specific [place] 1.010 Urine Protein NEG Urine Glucose (UA) NEG Urine Ketones NEG Urine Blood NEG Urine Nitrite NEG Ur Leukocyte Esterase NEG Urine Opiates Screen Not Detected Urine Fentanyl Screen Not Detected Ur Barbiturates Screen Not Detected Ur Phencyclidine Scrn Not Detected Ur Amphetamines Screen Not Detected U Benzodiazepines Scrn Not Detected Urine Cocaine Screen POSITIVE H U Marijuana (THC) Screen POSITIVE H Ethyl Alcohol COVID-19 (VINNIE) COVID-19 Clin Com 02/21/21 02/21/21 02/21/21 06:23 06:23 06:23 MCV 90.9 MCH 30.4 MCHC 33.5 RDW 12.7 Plt Count 307 MPV 10.2 Immature Gran % (Auto) 0.3 Neut % (Auto) 50.3 Lymph % (Auto) 38.9 [place] % (Auto) 7.9 Eos % (Auto) 2.3 Baso % (Auto) 0.3 Lymph # (Auto) 3.0 [place] # (Auto) 0.6 Eos # (Auto) 0.2 Baso # (Auto) 0.0 Abs Immat Gran (auto) 0.02 Absolute Neuts (auto) 3.9 Absolute Nucleated RBC 0.000 Nucleated RBC % (auto) 0.0 PT INR APTT Anion Gap 12 Estim Creat Clear Calc 115.8 Estimated GFR > 60 Random Glucose 110 Estimat Average Glucose 143 Hemoglobin A1c % 6.6 Calcium 8.8 Total Bilirubin AST ALT Alkaline Phosphatase Troponin I High Sens Total Protein Albumin Triglycerides 119 Cholesterol 193 LDL Cholesterol, Calc 130 HDL Cholesterol 40 Lipase TSH Urine Color Urine Appearance Urine pH Ur Specific [place] Urine Protein Urine Glucose (UA) Urine Ketones Urine Blood Urine Nitrite Ur Leukocyte Esterase Urine Opiates Screen Urine Fentanyl Screen Ur Barbiturates Screen Ur Phencyclidine Scrn Ur Amphetamines Screen U Benzodiazepines Scrn Urine Cocaine Screen U Marijuana (THC) Screen Ethyl Alcohol COVID-19 (VINNIE) COVID-19 Clin Com Laboratory Results WBC 7.8 X10*3/uL (4.8-10.8) 02/21/21 06:23 RBC 4.73 X10*6/uL (4.60-5.80) 02/21/21 06:23 Hgb 14.4 g/dl (14.0-18.0) 02/21/21 06:23 Hct 43.0 % (42-52) 02/21/21 06: MCV 90.9 fL (80-98) 02/21/21 06:23 MCH 30.4 pg (27.0-33.0) 02/21/21 06: MCHC 33.5 g/dl (31.0-36.0) 02/21/21 06: RDW 12.7 % (11.0-16.0) 02/21/21 06:23 Plt Count 307 X10*3/uL (160-400) 02/21/21 06:23 MPV 10.2 fL (9.4-12.4) 02/21/21 06:23 Immature Gran % (Auto) 0.3 % (0.0-0.4) 02/21/21 06: Neut % (Auto) 50.3 % (45-73) 02/21/21 06: Lymph % (Auto) 38.9 % (20-40) 02/21/21 06:23 [place] % (Auto) 7.9 % (2-11) 02/21/21 06:23 Eos % (Auto) 2.3 % (0-4) 02/21/21 06:23 Baso % (Auto) 0.3 % (0-2) 02/21/21 06:23 Lymph # (Auto) 3.0 X10*3/uL (1.2-4.9) 02/21/21 06:23 [place] # (Auto) 0.6 X10*3/uL (0.1-1.2) 02/21/21 06:23 Eos # (Auto) 0.2 X10*3/uL (0.0-0.4) 02/21/21 06:23 Baso # (Auto) 0.0 X10*3/uL (0.0-0.2) 02/21/21 06:23 Abs Immat Gran (auto) 0.02 X10*3/uL (0.00-0.03) 02/21/21 06:23 Absolute Neuts (auto) 3.9 X10*3/uL (2.0-8.3) 02/21/21 06:23 Absolute Nucleated RBC 0.000 X10*3/uL (0.0-0.012) 02/21/21 06:23 Nucleated RBC % (auto) 0.0 /100WBC (0.0-0.2) 02/21/21 06:23 PT 12.2 SEC (9.9-13.0) 02/20/21 21:15 INR 1.1 (0.9-1.1) 02/20/21 21:15 APTT 36.4 SEC (24.1-38.0) 02/20/21 21:15 Sodium 140 mmol/L (135-145) 02/21/21 06:23 Potassium 3.6 mmol/L (3.3-5.1) 02/21/21 06:23 Chloride 108 mmol/L (96-108) 02/21/21 06:23 Carbon Dioxide 24 mmol/L (22-29) 02/21/21 06:23 Anion Gap 12 (12-20) 02/21/21 06:23 BUN 9 mg/dL (9-16) 02/21/21 06:23 Creatinine 0.83 mg/dL (0.5-1.4) 02/21/21 06:23 Estim Creat Clear Calc 115.8 02/21/21 06:23 Estimated GFR > 60 02/21/21 06:23 Random Glucose 110 mg/dL (60-115) 02/21/21 06:23 Estimat Average Glucose 143 mg/dL 02/21/21 06:23 Hemoglobin A1c % 6.6 % 02/21/21 06:23 Calcium 8.8 mg/dL (8.4-10.2) 02/21/21 06:23 Total Bilirubin 0.4 mg/dL (0.0-1.0) 02/20/21 21:15 AST 21 U/L (5-37) 02/20/21 21:15 ALT 31 U/L (0-40) 02/20/21 21:15 Alkaline Phosphatase 99 U/L (39-117) 02/20/21 21:15 Troponin I High Sens < 3.5 ng/L (<3.5-35.0) 02/20/21 22:52 Total Protein 7.3 g/dL (6.5-8.0) 02/20/21 21:15 Albumin 3.9 g/dL (3.5-5.0) 02/20/21 21:15 Triglycerides 119 mg/dL 02/21/21 06:23 Cholesterol 193 mg/dL 02/21/21 06:23 LDL Cholesterol, Calc 130 mg/dl 02/21/21 06:23 HDL Cholesterol 40 mg/dL 02/21/21 06:23 Lipase 60 U/L (8-78) 02/20/21 21:15 TSH 0.94 uIU/mL (0.32-4.0) 02/20/21 21:15 Urine Color YELLOW 02/20/21 22:49 Urine Appearance CLEAR 02/20/21 22:49 Urine pH 6.0 (5.0-8.0) 02/20/21 22:49 Ur Specific [place] 1.010 (1.005-1.025) 02/20/21 22:49 Urine Protein NEG MG/DL (NEG-TRACE) 02/20/21 22:49 Urine Glucose (UA) NEG MG/DL (NEG) 02/20/21 22:49 Urine Ketones NEG MG/DL (NEG) 02/20/21 22:49 Urine Blood NEG (NEG) 02/20/21 22:49 Urine Nitrite NEG (NEG) 02/20/21 22:49 Ur Leukocyte Esterase NEG (NEG) 02/20/21 22:49 Urine Opiates Screen Not Detected (Not Detect) 02/20/21 22:49 Urine Fentanyl Screen Not Detected (Not Detect) 02/20/21 22:49 Ur Barbiturates Screen Not Detected (Not Detect) 02/20/21 22:49 Ur Phencyclidine Scrn Not Detected (Not Detect) 02/20/21 22:49 Ur Amphetamines Screen Not Detected (Not Detect) 02/20/21 22:49 U Benzodiazepines Scrn Not Detected (Not Detect) 02/20/21 22:49 Urine Cocaine Screen POSITIVE (Not Detect) H 02/20/21 22:49 U Marijuana (THC) Screen POSITIVE (Not Detect) H 02/20/21 22:49 Ethyl Alcohol < 10 mg/dL 02/20/21 21:15 COVID-19 (VINNIE) Negative (Negative) 02/20/21 21:15 COVID-19 Clin Com See Note 02/20/21 21:15 Impressions Chest X-Ray 02/20/21 20:03 IMPRESSION: No acute pulmonary finding. Head CT 02/20/21 20:03 IMPRESSION: No acute intracranial pathology. Carotid Doppler Study 02/21/21 09:37 IMPRESSION: 1. RIGHT: Normal right internal carotid artery without atherosclerotic plaque or hemodynamically significant stenosis. 2. LEFT: Normal left internal carotid artery without atherosclerotic plaque or hemodynamically significant stenosis. Brain MRI 02/21/21 11:01 IMPRESSION: The patient was unable to tolerate imaging. The examination was terminated prematurely and is therefore incomplete. There are however multiple acute infarcts involving the cortical mcwilliams matter of the left cervical hemisphere and left centrum semiovale that appear to be distributed between the major vascular territories suggesting watershed infarcts. Vascular flow voids within the head are grossly maintained. A carotid ultrasound or a CT angiogram of the neck can be obtained for better anatomic characterization of the vascular anatomy. 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 Neuro consulted. PT/OT cleared, will need ongoing COMMUNITY OUTREACH SPECIALIST for aphasia/dysarthria - TTE, telemetry, CTA brain # cocaine abuse - CARE Team + Addiction Medicine consults, counseled to avoid cocaine entirely given risk for causing CVA and other adverse cardiovascular sequelae # DM2, A1c 6.6 - correction-dose lispro, MTF upon discharge # VTE ppx - LMWH Quality Stroke Does the patient have a stroke diagnosis?: No VTE Prior VTE?: No VTE Risk Level:: Medical - moderate - high VTE Device Contraindication: N/A - Device Ordered VTE Drug Contraindication: Treatment Not Indicated
--- NOTE | 2021-02-21 15:26 | MHC.SP.ADU ---
Referring provider: Dr. Geronimo Blank Reason for Referral: assess speech and language Type of Treatment: 50767 Evaluation Speech Sound Production WITH Language Date of Plan of Treatment: 02/21/21 Onset of Symptoms/Illness: 02/18/21 Date Treatment Started: 02/21/21 Medical Diagnosis: left MCA CVA Primary Speech Language Diagnosis: R47.01 Aphasia Secondary Speech Language Diagnosis: R47.1 Dysarthria History Pt is a 50 year old male who woke up on Sunday 02/18 with word finding difficulty as well as difficulty speaking. He presented to the ED on 02/20 when his difficulties with speech and language did not improve. In addition, pt suffered a back injury at work 1 week prior to the onset of speech and language difficulties. Head CT and chest x-ray completed 02/20 were both negative for acute findings. Results from MRI of the brain completed 02/21 are as follows: The patient was unable to tolerate imaging. The examination was terminated prematurely and is therefore incomplete. There are however multiple acute infarcts involving the cortical mcwilliams matter of the left cervical hemisphere and left centrum semiovale that appear to be distributed between the major vascular territories suggesting watershed infarcts. Vascular flow voids within the head are grossly maintained. A carotid ultrasound or a CT angiogram of the neck can be obtained for better anatomic characterization of the vascular anatomy. Medical History: Other: cocaine abuse, new diagnosis of DMII Medication List: Please see pt's medical chart for a list of medications. Recent Hospitalizations: No Respiratory Needs: Room Air Patient Orientation: Alert & Oriented x 4 Social History: Employment Status: [employer] Employed Highest level of education obtained: Current Living Situation: Pt resides with his . Pt reported that he works at a [employer]. Past Speech Language Therapy: None Swallowing History: Dysphagia Specific: Within Functional Limits Comments: Pt is currently on a regular consistency diet with thin liquids. No difficulties with PO intake were reported. Pt denied any difficulties with swallowing. Pre-eval Risk for Aspiration: None Pre-evaluation Dietary Consistencies: Regular Pre-eval Liquid Intake: Thin Pre-eval Medication Intake: Whole with Liquid Reported Speech, Language, Cognition difficulties: Speaking Comments: Pt reported I'm a talker . He explained that the onset of aphasia/dysarthria occurred out of the blue on Friday. He further described I got a little better. It was worse . Pt reported that he speaks and understands both Chadian and Malaysian though reported I know more Chadian than Malaysian . Quality of Life: Patient Stated Goal of Speech-Language Therapy: To improve expressive language. Assessment Speech Production: Aphasic: Fluent Slow Clinical Impression: Impaired Observations: Pt demonstrated slow speech. Several instances of word retrieval difficulty were noted during functional conversation. Pt was able to independently utilize the strategy of circumlocution to describe the word he intended to say. For instance, when unable to retrieve the word crocodile , pt described It's a reptile . Informal Voice Assessment: Voice Loudness: Normal Voice Nasal Resonance: Normal Voice Oral Resonance: Normal Voice Phonatory-based Quality: Normal Voice Pitch: Normal Voice Other Observations: Clinical Impression: Intact Clinicial Observations: Pt presented with a vocal quality consistent with his age and gender, subjectively deemed to be unremarkable by this clinician. Tests of Speech & Lang Adults: Clinical Impression: Impaired Observations: Pt was alert and oriented to his location, situation, and the month. He incorrectly reported that the year was 2000. Pt was unable to self correct this error, even when his response was repeated multiple times. When prompted, pt was then able to state the correct, current year. Informal expressive language tasks were presented at pt's bedside. Pt's accuracy with these tasks is as follows: - Confrontation naming of functional objects: 100% accuracy - Responsive naming of functional objects (e.g. What do you tell time with? ): 80% accuracy - Convergent category naming (Pt was asked to state the category when presented with 3-4 category members): 50% accuracy - Divergent category naming: Pt named an average of 8 items in a given category in 1 minute Pt completed automatic speech tasks of counting 1 through 20 and reciting the days of the week with 100% accuracy, though his production of these sequences was markedly slow. During recitation of the months of the year, Hadley recited the months of the year accurately from June-December, and then paused. With increased time and counting on his fingers, he was able to then recite the remaining months of the year in the correct sequence. Hadley demonstrated difficulty answering open ended questions such as What month comes after December? . During category naming tasks presented, Hadley was able to state a vague category, e.g. park vs. the specific category of things you find at a playground/playground equipment . He often produced phrases with incorrect words, e.g. he named cleaning utensils vs. cleaning supplies . 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 Hadley's receptive language appeared appropriate for basic level information. Pt was able to understand and execute all evaluation tasks presented without cuing. In addition to pt's expressive language difficulties, he also produced occasional articulation difficulties. These difficulties were isolated to a mild-moderate distortion of /l/ and difficulty with the sequencing of multisyllabic words such as crocodile and hospital . Pt demonstrated awareness of his word retrieval difficulties and appeared motivated to improve his speech and language. Impressions and Recommendations Summary: Pt presents with moderate expressive aphasia and mild, intermittent dysarthria. Pt demonstrated fluent speech, though spoke with a markedly slow rate of speech. Pt demonstrated numerous instances of word retrieval difficulty both during functional conversation as well as during structured evaluation tasks. At the time of the evaluation, no difficulties with the comprehension of basic level information were observed. Hadley demonstrated occasional, mild distortions of sounds such as /l/ as well as difficulty sequencing multisyllabic words. Pt would benefit from a standardized cognitive assessment to rule in/out any cognitive impairments. OIL LEASE OPERATOR will follow pt throughout his hospitalization. Continued ST is recommended upon pt's transfer to the next level of care. Impact on Daily Function/Activity Limitations: Daily Activities: Severe Interpersonal Interactions: Severe Employment: Severe Community: Severe Prognosis for Improvement: Excellent Comment: Recommendation for Speech Therapy: Inpatient Speech Therapy Frequency/Duration: 1x/day during pt's inpatient hospitalization with continued speech therapy at the next level of care as indicated. Date Range for Service Requested: Time to Reassess: Completion of a standardized cognitive assessment is recommended. Patient Education: Completed: Yes Patient/Caregiver Education: Described Results of Evaluation Patient expressed understanding of evaluation Patient agrees with goals and treatment plan Comments/Barriers to Learning: None Knit Goods Washer Clinican/Clinical Fellow: No Supervisory Statement: N/A Speech Language Pathologist: Tamie Brambila M.A., [facility]-OIL LEASE OPERATOR
[2021-02-21] MEDS: Enoxaparin Sodium 40 MG/0.4 ML SYRINGE SUBCUT (15:53)
--- NOTE | 2021-02-21 16:06 | MHC.RECOVRN ---
50 year old male presented to [facility] ED, ambulatory, on 02/20 due to pt reports trouble forming words since friday, states he feels tired. ?no facial droop per river driver. Upon evaluation, pt admitted for further management and word finding difficulty. Per neurology, Tox screen + for cocaine. MRI revealed multiple areas of restricted diff in left upper div MCA,?probably cocaine related cerebral ischemia. ? T/w met with pt in 347 after consults placed to Addiction Medicine as well as CARE Team. Upon entering pts room, pt awake and alert. T/w introduced self and pt responded I don't need anything. I don't have a problem. ? Pt reports using cocaine, [place], twice per month and special occasions. Pt was open to discussion around risks associated with cocaine use and increase in presence of fentanyl in cocaine, unbeknownst to people who are using cocaine. Pt UDS negative for fentanyl. Pt states Never again will I use it. I want to be able to talk to my kids. Pt reports reconciling with , who is supportive and encouraged pt to seek medical attention COTTON CLASSER AIDE.? Pt educated regarding recovery supports if pt is interested in the future. Pt provided with t/w card if questions or concerns arise.?
[2021-02-21] MEDS: iohexoL 350 MG/ML 100 ML INFUS..BTL IV (17:10)
[2021-02-21 17:11] LABS: Glucose, Whole Blood 127 mg/dL (60-115)
[2021-02-21] MEDS: Atorvastatin Calcium 40 MG TABLET PO (20:48)
[2021-02-21 20:53] LABS: Glucose, Whole Blood 94 mg/dL (60-115)
[2021-02-22] VITALS: BP 165/97; PULSE 92; RESP 18; TEMP 36.6; O2SAT 99
[2021-02-22 04:00] VITALS: BP 154/86; PULSE 89; RESP 18; TEMP 36.9; O2SAT 98
[2021-02-22 06:22] LABS: Thyroid Stimulating Hormone 2.43 uIU/mL (0.32-4.0)
[2021-02-22 07:31] VITALS: BP 142/87; PULSE 96; RESP 16; TEMP 36.4; O2SAT 97
[2021-02-22] MEDS: 0.9 % Sodium Chloride Flush 3 ML SYRINGE IVFLUSH (07:50)
--- NOTE | 2021-02-22 08:30 | CA_ITS ---
Transthoracic Echocardiogram Patient (Last, First, Middle): Hadley Winston, Gender: Male Date of : 1970 Age: 50 Procedure Date: 02/22/2021 Procedure Type: Transthoracic Echocardiogram Location: S3W Height: 170.18 cm Weight: 97.52 kg BSA: 2.09 m2 Heart Rate: bpm BP: 124 / 77 mmHg Marine Firer: ZULEMA Mckeon MD: Geronimo Blank MD Symptoms: cva bubble study Study Quality: Good Conclusions: - Normal left ventricular size, thickness, systolic function, and wall motion. - Normal right ventricular cavity size and systolic function. - There is no evidence of interatrial shunt by color Doppler and contrast. Findings Left Ventricle Normal left ventricular size, thickness, systolic function, and wall motion. The visually estimated ejection fraction is between 55-60%. Diastolic function is normal for age. Right Ventricle Normal right ventricular cavity size and systolic function. Atria Both atria are normal in size. There is no evidence of interatrial shunt by color Doppler and contrast. Aortic Valve Normal aortic valve structure and function. There is no aortic valve stenosis. There is no aortic valve regurgitation. Mitral Valve Normal mitral valve structure and function. There is no mitral valve regurgitation. There is no mitral valve stenosis. Pulmonic Valve The pulmonic valve is likely normal. Tricuspid Valve Normal tricuspid valve structure and function. There is trace tricuspid valve regurgitation. Normal right atrial pressure. There is no evidence of pulmonary hypertension. Great Vessels All visible segments of the aorta are normal in size. The visualized portions of the pulmonary artery and branches are normal. Venous The inferior vena cava is normal in size and collapses greater than 50% with inspiration. Pericardium/Pleural Normal pericardial structure. There is no evidence of pericardial effusion. Prior Study Comparison No prior study available for comparison. Measurements 2D Linear Measurements IVSd: 1.15 0.6-0.9/0.6-1.0 cm LVIDd: 4.07 3.9-5.3/4.2-5.9 cm LVIDd Index: 1.95 2.4-3.2/2.2-3.1 cm/m2 LVIDs: 2.97 2.0-3.6 cm LVPWd: 1.08 0.7-1.1 cm Ao Root: 2.80 2.1-3.5 cm LA Diam: 3.70 2.7-3.8/3.0-4.0 cm LAIDs Index: 1.77 1.5-2.3 cm/m2 LV Mass: 189.93 67-162/88-224 g LV Mass Index: 90.88 43-95/49-115 g/m2 LVOT Diam: 2.00 3.0+(-)1.3 cm 2D Systolic Function EF 4C: 59.40 >55% EF 2C: 49.90 >55% EF BiP: 57.10 >55% Mitral Valve MV Pk E: 0.75 MV PK A: 1.04 MV Decel Time: 202.00 E/A: 0.70 E'Lateral: 11.50 E'Medial: 8.27 E/E' Med: 9.10 E/E' Lat: 6.50 PHT: 59.00 MVA PHT: 3.73 Decel [place]: 3.71 Aortic Valve AoV Pk Prem: 1.95 AoV Mn Prem: 1.34 AoV VTI: 0.33 AoV Pk Grad: 15.00 Aov Mn Grad: 8.00 JATIN Cont.VTI: 1.92 LVOT LVOT Pk Prem: 1.13 LVOT Mn Prem: 0.70 LVOT VTI: 0.20 LVOT Pk Grad: 5.00 LVOT Mn Grad: 2.00 LVOT Diam: 2.00 LVOT Area: 3.14 Diastolic Function MV Pk E: 0.75 MV Pk A: 1.04 E/A: 0.70 E'Medial: 8.27 E/E' Med: 9.10 E' Laterial: 11.50 E/E' Lat: 6.50 Right Ventricle TAPSE (mm): 1.87 TVS' Prem: 14.00 Tricuspid Valve TR Pk Prem: 1.74 TR Pk Grad: 12.00 RA Press: 3.00 RVSP: 15.00 Great Vessels Aorta Ao Root-2D: 2.80 2.0-3.7 cm Ao Asc: 3.30 2.1-3.4 cm Ao Arch: 2.80 Updated in Other Vendor System with Status of Final Tuan Daily MD electronically signed on 02/22/2021 3:09:01 PM with status of Final
--- NOTE | 2021-02-22 08:42 | P.PNIM_ITS ---
Subjective Subjective Date of Service: 02/22/21 Physical Exam Vital Signs: Vital Signs: Last Vital Signs Temp 97.5 F 02/22/21 07:31 Pulse 96 02/22/21 07:31 Resp 16 02/22/21 07:31 BP 142/87 H 02/22/21 07:31 Pulse Ox 97 02/22/21 07:31 Body Mass Index 33.6 Objective Data Active Medications Acetaminophen (Acetaminophen 325 Mg Tablet) 650 mg PO Q6H PRN PRN Reason: Pain, Mild (Pain Scale 1-3) Aspirin (Aspirin Enteric Coated 81 Mg Tablet.) 81 mg PO DAILY [facility] Last Admin: 02/21/21 11:23 Dose: 81 mg Documented by: LALO Atorvastatin Calcium (Atorvastatin Calcium 40 Mg Tablet) 40 mg PO BEDTIME [facility] Last Admin: 02/21/21 20:48 Dose: 40 mg Documented by: MARTHA Dextrose (Dextrose 50 % 25 Gm/50 Ml Vial) 25 gm IVPUSH Q15M PRN; Protocol PRN Reason: per Hypoglycemia Standing Ord. Enoxaparin Sodium (Enoxaparin Sodium 40 Mg/0.4 Ml Syringe) 40 mg SUBCUT Q24H [facility] Last Admin: 02/21/21 15:53 Dose: 40 mg Documented by: VANE Glucose (Glucose Gel 15 Gm Gel..Gram.) 15 gm PO Q15M PRN; Protocol PRN Reason: per Hypoglycemia Standing Ord. Insulin Human Lispro (Insulin Lispro 100 Unit/Ml 3 Ml Vial) 0 unit SUBCUT QIDACHS [facility]; Protocol Last Admin: 02/22/21 07:45 Dose: Not Given Documented by: VANE Non-Admin Reason: refusing blood sugar Melatonin (Melatonin 3 Mg Tablet) 6 mg PO BEDTIME PRN PRN Reason: Insomnia Senna (Sennosides 8.6 Mg Tablet) 17.2 mg PO BEDTIME PRN PRN Reason: Constipation Sodium Chloride (0.9 % Sodium Chloride Flush 3 Ml Syringe) 3 ml IVFLUSH QSHIFT [facility] Last Admin: 02/22/21 07:50 Dose: 3 ml Documented by: VANE Labs CBC & Chem 7: 02/21/21 06:23 02/21/21 06:23 Labs: Laboratory Results - last 24 hr 02/21/21 02/21/21 02/22/21 16:50 20:06 05:12 POC Glucose 127 H 94 TSH 2.43 Impressions Carotid Doppler Study 02/21/21 09:37 IMPRESSION: 1. RIGHT: Normal right internal carotid artery without atherosclerotic plaque or hemodynamically significant stenosis. 2. LEFT: Normal left internal carotid artery without atherosclerotic plaque or hemodynamically significant stenosis. Brain MRI 02/21/21 11:01 IMPRESSION: The patient was unable to tolerate imaging. The examination was terminated prematurely and is therefore incomplete. There are however multiple acute infarcts involving the cortical mcwilliams matter of the left cervical hemisphere and left centrum semiovale that appear to be distributed between the major vascular territories suggesting watershed infarcts. Vascular flow voids within the head are grossly maintained. A carotid ultrasound or a CT angiogram of the neck can be obtained for better anatomic characterization of the vascular anatomy. Head CTA 02/21/21 17:15 IMPRESSION: 1. Evolving acute infarcts of the left frontoparietal lobes, correlating with findings on recent MRI. No hemorrhagic conversion. 2. High-grade stenosis of the distal M1 segment of the left MCA. 3. No additional proximal occlusion or flow-limiting stenosis of the major intracranial arteries. Assessment and Plan (1) Acute CVA (cerebrovascular accident): Status: Acute Assessment and Plan: hospital d#3 50yo M presenting with expressive aphasia and dysarthria since 02/17/21, found to have left MCA CVA cocaine abuse new dx DM2 # acute CVA - ASA, statin for secondary prevention. Neuro consulted. PT/OT cleared, will need ongoing MANAGER INVENTORY for aphasia/dysarthria - TTE pending - telemetry no arrhythmias # cocaine abuse - CARE Team + Addiction Medicine consults, counseled to avoid cocaine entirely given risk for causing CVA and other adverse cardiovascular sequelae # DM2, A1c 6.6 - correction-dose lispro, MTF upon discharge # VTE ppx - LMWH Quality Stroke Does the patient have a stroke diagnosis?: No VTE Prior VTE?: No VTE Risk Level:: Medical - moderate - high VTE Device Contraindication: N/A - Device Ordered VTE Drug Contraindication: Treatment Not Indicated
[2021-02-22] MEDS: Aspirin Enteric Coated 81 MG TABLET.DR PO (08:58)
--- NOTE | 2021-02-22 10:08 | MHC.SLORD ---
Speech Language Pathology Order Status: Patient was sleeping upon CURRICULUM DEVELOPMENT MANAGER arrival. Plan to return later today as schedule allows or tomorrow morning for speech therapy. Recommend speech therapy during inpatient stay and at next level of care.
[2021-02-22 11:11] VITALS: BP 140/90; PULSE 87; RESP 16; TEMP 36.6; O2SAT 98
--- NOTE | 2021-02-22 11:49 | P.DS_ITS ---
DS: Providers Provider Date of Service: 02/22/21 Date of admission: 02/20/21 22:03 Primary care physician: Unknown Physician Consults: 02/20/21 22:05 Consult to Neurology Routine Consulting Provider: Nikolay Cohen Reason for consultation: word finding difficulty 02/21/21 08:59 Addiction Medicine Routine Consulting Provider: Nell Grider Reason for consultation: cocaine abuse Consult to Care Team Routine Comment: Reason for consultation: cocaine abuyse DS: Diagnosis Discharge Diagnosis (1) Acute CVA (cerebrovascular accident): Status: Acute (2) Aphasia due to acute stroke: Status: Acute (3) Expressive aphasia: Status: Acute (4) New onset type 2 diabetes mellitus: Status: Acute (5) Cocaine abuse: Status: Acute DS: Summary Hospital Course Hospital Course: From admission history and physical by hospitalist Geronimo Blank, 02/20/21: 50-year-old male with no significant past medical history presented to the hospital with a chief complaint of word-finding difficulty. Patient reported that on last Friday he was doing fine but on Friday morning when he woke up he was difficulty with finding words. Initially thought the symptoms would go away but the symptoms have been continued and not improving decided to come to the ER for further evaluation. Denies any oral pain; denies any swallowing difficulty; mentions that he is able to comprehend but he is listening but unable to put out the words and does difficulty finding words; Denies any family history of CV are heart disease. Denies any toxic habits including smoking. Patient reports that for the past 1 week has mild left lower extremity weakness; denies any low back pain.? Denies any trauma. ER course Per team patient noted to have word-finding difficulty; CT head showed no acute findings; admitted to the hospital further management This 50yo M presenting with expressive aphasia and dysarthria since 02/17/21 was found to have left MCA CVA onr MRI. He had presented out of the tPA window. Neurology was consulted. CT angio of the head showed high-grade stenosis of the distal M1 segment of the left MCA. He was placed on aspirin and atorvastatin for secondary prevention. He was seen by WINDOWS VMWARE ENGINEER and will need outpatient follow-up for speech therapy. He tested positive for cocaine and was counseled to avoid cocaine and all drugs of abuse. He was found to have new-onset DM2 with A1c of 6.6 and was started on metformin and discharge and counseled on the need for Mediterranean diet and aerobic exercise. He was discharged home with instructions to establish primary care as soon as possible and to follow up with the [facility] at [facility]. Time Spent with Patient Time attestation: Total time spent providing and/or coordinating discharge services: Discharge coordination time: Greater than 30 minutes Quality: Stroke Does the patient have a stroke diagnosis?: Yes Reason for No Anti-thrombotic at DC: N/A - Med Ordered Reason for No Anticoagulant at DC: Drug treatment not indicated Reason Not Initiating IV-Tpa: Drug treatment not indicated Reason for No Anti-thrombotic by Day Two: N/A - Med Ordered Reason for No Statin at DC: N/A - Med Ordered Physical Exam Vital Signs: Vital Signs: Last Vital Signs Temp 98 F 02/22/21 11:11 Pulse 87 02/22/21 11:11 Resp 16 02/22/21 11:11 BP 140/90 H 02/22/21 11:11 Pulse Ox 98 02/22/21 11:11 Body Mass Index 33.6 Gen: in no acute distress HEENT: sclera anicteric, moist mucus membranes Neck: supple Lungs: clear to auscultation bilaterally Heart: regular rate and rhythm, no murmurs Abd: soft, non-tender, non-distended, obese Ext: no edema Skin: warm/well-perfused Neuro: alert and oriented x3, mild expressive aphasia, dysarthric Psych: appropriate affect DS: Data Data Completed and Pending Completed studies during hospitalization [Text1]: Laboratory Results WBC 7.8 X10*3/uL (4.8-10.8) 02/21/21 06:23 RBC 4.73 X10*6/uL (4.60-5.80) 02/21/21 06:23 Hgb 14.4 g/dl (14.0-18.0) 02/21/21 06:23 Hct 43.0 % (42-52) 02/21/21 06:23 MCV 90.9 fL (80-98) 02/21/21 06:23 MCH 30.4 pg (27.0-33.0) 02/21/21 06:23 MCHC 33.5 g/dl (31.0-36.0) 02/21/21 06:23 RDW 12.7 % (11.0-16.0) 02/21/21 06:23 Plt Count 307 X10*3/uL (160-400) 02/21/21 06: MPV 10.2 fL (9.4-12.4) 02/21/21 06:23 Immature Gran % (Auto) 0.3 % (0.0-0.4) 02/21/21 06: Neut % (Auto) 50.3 % (45-73) 02/21/21 06: Lymph % (Auto) 38.9 % (20-40) 02/21/21 06:23 Howard % (Auto) 7.9 % (2-11) 02/21/21 06: Eos % (Auto) 2.3 % (0-4) 02/21/21 06: Baso % (Auto) 0.3 % (0-2) 02/21/21 06: Lymph # (Auto) 3.0 X10*3/uL (1.2-4.9) 02/21/21 06:23 Howard # (Auto) 0.6 X10*3/uL (0.1-1.2) 02/21/21 06: Eos # (Auto) 0.2 X10*3/uL (0.0-0.4) 02/21/21 06:23 Baso # (Auto) 0.0 X10*3/uL (0.0-0.2) 02/21/21 06: Abs Immat Gran (auto) 0.02 X10*3/uL (0.00-0.03) 02/21/21 06: Absolute Neuts (auto) 3.9 X10*3/uL (2.0-8.3) 02/21/21 06: Absolute Nucleated RBC 0.000 X10*3/uL (0.0-0.012) 02/21/21: Nucleated RBC % (auto) 0.0 /100WBC (0.0-0.2) 02/21/21 06: PT 12.2 SEC (9.9-13.0) 02/20/21 21:15 INR 1.1 (0.9-1.1) 02/20/21 21:15 APTT 36.4 SEC (24.1-38.0) 02/20/21 21:15 Sodium 140 mmol/L (135-145) 02/21/21 06:23 Potassium 3.6 mmol/L (3.3-5.1) 02/21/21 06:23 Chloride 108 mmol/L (96-108) 02/21/21 06:23 Carbon Dioxide 24 mmol/L (22-29) 02/21/21 06:23 Anion Gap 12 (12-20) 02/21/21 06:23 BUN 9 mg/dL (9-16) 02/21/21 06:23 Creatinine 0.83 mg/dL (0.5-1.4) 02/21/21 06:23 Estim Creat Clear Calc 115.8 02/21/21 06:23 Estimated GFR > 60 02/21/21 06:23 POC Glucose 94 mg/dL (60-115) 02/21/21 20:06 Random Glucose 110 mg/dL (60-115) 02/21/21 06:23 Estimat Average Glucose 143 mg/dL 02/21/21 06:23 Hemoglobin A1c % 6.6 % 02/21/21 06:23 Calcium 8.8 mg/dL (8.4-10.2) 02/21/21 06:23 Total Bilirubin 0.4 mg/dL (0.0-1.0) 02/20/21 21:15 AST 21 U/L (5-37) 02/20/21 21:15 ALT 31 U/L (0-40) 02/20/21 21:15 Alkaline Phosphatase 99 U/L (39-117) 02/20/21 21:15 Troponin I High Sens < 3.5 ng/L (<3.5-35.0) 02/20/21 22:52 Total Protein 7.3 g/dL (6.5-8.0) 02/20/21 21:15 Albumin 3.9 g/dL (3.5-5.0) 02/20/21 21:15 Triglycerides 119 mg/dL 02/21/21 06:23 Cholesterol 193 mg/dL 02/21/21 06:23 LDL Cholesterol, Calc 130 mg/dl 02/21/21 06:23 HDL Cholesterol 40 mg/dL 02/21/21 06:23 Lipase 60 U/L (8-78) 02/20/21 21:15 TSH 2.43 uIU/mL (0.32-4.0) 02/22/21 05:12 Urine Color YELLOW 02/20/21 22:49 Urine Appearance CLEAR 02/20/21 22:49 Urine pH 6.0 (5.0-8.0) 02/20/21 22:49 Ur Specific [place] 1.010 (1.005-1.025) 02/20/21 22:49 Urine Protein NEG MG/DL (NEG-TRACE) 02/20/21 22:49 Urine Glucose (UA) NEG MG/DL (NEG) 02/20/21 22:49 Urine Ketones NEG MG/DL (NEG) 02/20/21 22:49 Urine Blood NEG (NEG) 02/20/21 22:49 Urine Nitrite NEG (NEG) 02/20/21 22:49 Ur Leukocyte Esterase NEG (NEG) 02/20/21 22:49 Urine Opiates Screen Not Detected (Not Detect) 02/20/21 22:49 Urine Fentanyl Screen Not Detected (Not Detect) 02/20/21 22:49 Ur Barbiturates Screen Not Detected (Not Detect) 02/20/21 22:49 Ur Phencyclidine Scrn Not Detected (Not Detect) 02/20/21 22:49 Ur Amphetamines Screen Not Detected (Not Detect) 02/20/21 22:49 U Benzodiazepines Scrn Not Detected (Not Detect) 02/20/21 22:49 Urine Cocaine Screen POSITIVE (Not Detect) H 02/20/21 22:49 U Marijuana (THC) Screen POSITIVE (Not Detect) H 02/20/21 22:49 Ethyl Alcohol < 10 mg/dL 02/20/21 21:15 COVID-19 (VINNIE) Negative (Negative) 02/20/21 21:15 COVID-19 Clin Com See Note 02/20/21 21:15 Impressions Chest X-Ray 02/20/21 20:03 IMPRESSION: No acute pulmonary finding. Head CT 02/20/21 20:03 IMPRESSION: No acute intracranial pathology. Carotid Doppler Study 02/21/21 09:37 IMPRESSION: 1. RIGHT: Normal right internal carotid artery without atherosclerotic plaque or hemodynamically significant stenosis. 2. LEFT: Normal left internal carotid artery without atherosclerotic plaque or hemodynamically significant stenosis. Brain MRI 02/21/21 11:01 IMPRESSION: The patient was unable to tolerate imaging. The examination was terminated prematurely and is therefore incomplete. There are however multiple acute infarcts involving the cortical mcwilliams matter of the left cervical hemisphere and left centrum semiovale that appear to be distributed between the major vascular territories suggesting watershed infarcts. Vascular flow voids within the head are grossly maintained. A carotid ultrasound or a CT angiogram of the neck can be obtained for better anatomic characterization of the vascular anatomy. Head CTA 02/21/21 17:15 IMPRESSION: 1. Evolving acute infarcts of the left frontoparietal lobes, correlating with findings on recent MRI. No hemorrhagic conversion. 2. High-grade stenosis of the distal M1 segment of the left MCA. 3. No additional proximal occlusion or flow-limiting stenosis of the major intracranial arteries. TTE 02/22/21 - Normal left ventricular size, thickness, systolic function, and wall motion. ? - Normal right ventricular cavity size and systolic function.? ? - There is no evidence of interatrial shunt by color Doppler and contrast.? Discharge Plan Discharge Patient Disposition: Home, Self-Care Discharge Diagnosis: acute stroke, new-onset type 2 diabetes, cocaine abuse Referrals: [facility] [place] [facility] [Provider Group] - 1 Week Krupa Carson MA-A, [facility] [Speech Therapist] - 1 Week Physician,Carla [Primary Care Provider] - 1 Week Discharge Medications: New atorvastatin 40 mg Tablet 40 mg PO BEDTIME Qty: 30 RF: 0 aspirin 81 mg Tablet,Delayed Release (Dr/Ec) 81 mg PO DAILY Qty: 30 RF: 0 metformin 500 mg tablet 500 mg PO BID Qty: 60 RF: 0 Discharge Orders: Discharge Order (Routine); Ordered 02/22/21 Ordered By: Ramesh Rausch Diet: advance to usual diet and diabetic diet Activity on Discharge: no cocaine Stand Alone Forms: Patient Portal Discharge page Care Plan Goals: recovery from stroke avoidance of diabetic complications sobriety from cocaine Health Concerns: acute stroke new-onset type 2 diabetes cocaine abuse Plan of Treatment: take aspirin 81 mg daily and atorvastatin 40 mg daily establish primary care doctor as soon as possible outpatient speech therapy; contact the [facility]: [address] [place] [address] [place] [id number] start metformin 500 mg twice daily. avoid all sugar [no sodas, juice, or sweets]. follow Mediterranean diet; exercise 30 daily. avoid cocaine Assessment: as above Patient Instructions: Aphasia (DC), Expressive Aphasia Exercises (DC), Cocaine Abuse (DC), Type 2 Diabetes in Adults: New Diagnosis (DC), Stroke (DC), Mediterranean Diet (DC)
[2021-02-22 12:23] LABS: Glucose, Whole Blood 181 mg/dL (60-115)
[2021-02-22 15:20] VITALS: BP 133/89; PULSE 90; RESP 18; TEMP 36.7; O2SAT 98
--- NOTE | 2021-02-22 15:22 | MHC.CM.PN ---
PATIENT IS DISCHARGED HOME- SELF CARE. HE IS REMINDED THAT HE NEEDS OUTPATIENT SPEECH SERVICES. RN AWARE OF DC.
[2021-02-22] MEDS: Enoxaparin Sodium 40 MG/0.4 ML SYRINGE SUBCUT (16:49)
== END 2021-02-22 18:00 | disposition home or self-care (01) | DRG 45 ==
LOC: HO.ED 22:10 → HO.EDOVER 22:30 → HO.S3 02-21 10:17
PROVIDERS: Admitting Provider Hospitalist; Emergency Provider Emergency Medicine Emergency Medical Services; Visit Provider Family Medicine
DX: I63.512 Cerebral infarction due to unspecified occlusion or stenosis of left middle cerebral artery (principal); E11.9 Type 2 diabetes mellitus without complications; Z20.822 Contact with and (suspected) exposure to COVID-19; R29.701 NIHSS score 1; F14.10 Cocaine abuse, uncomplicated
CPT/HCPCS: 36415; 70450; 70496; 70551; 71046; 80048; 80053; 80061; 80307; 81003; 82077; 82947; 83036; 83690; 84443; 84484; 85025; 85610; 85730; 87635; 92523; 93005; 93306; 93880; 97162; 97166; 99285; J1650; Q9967

== ENCOUNTER 2021-06-13 08:29 | Outpatient (REF) | payer MEDICAID, SELFPAY ==
[2021-06-13 09:47] LABS: COVID-19 Test Negative (Negative)
== END 2021-06-13 08:30 | disposition home or self-care (01) ==
LOC: HO.LAB 08:29
PROVIDERS: Visit Provider Internal Medicine
DX: Z20.822 Contact with and (suspected) exposure to COVID-19 (principal)
CPT/HCPCS: 87635

== ENCOUNTER 2022-12-30 14:02 | Emergency (ER) | payer MEDICAID, SELFPAY ==
--- NOTE | 2022-12-30 14:13 | ED.GENADULT ---
HPI - General Adult General Chief complaint: Urogenital-Male Stated complaint: Penis issues Time Seen by Provider: 12/30/22 17:27 Source: patient and RN notes reviewed Mode of arrival: ambulatory Limitations: no limitations History of Present Illness HPI narrative: This is a 52-year-old male, with past medical history of CVA, presents to the emergency department with complaints of urinary frequency, penile swelling x 2 weeks. Patient states that he has had urinary frequency, urinary urgency, suprapubic pain upon urinating, and burning sensation due to cracks on his foreskin x2 weeks. Patient states that he has noticed that the foreskin is difficult to retract due to pain, swelling, and cracking skin. He denies history of similar symptoms in the past. Patient admits to having polyuria and polydipsia. He states that he has had the symptoms for a while. Of note, patient was diagnosed with diabetes in 2020 and was started on metformin, however patient has no recollection of this and has not been taking metformin or has been seen by his primary care physician the last 2 years. He states that diabetes runs in his family. No other complaints or concerns at this time. MD complaint: Penile irritation Onset (ago): week(s) Radiation: non-radiation Relieving factors: none Exacerbating factors: none Associated symptoms: denies other symptoms Treatments prior to arrival: none Related Data Previous Rx's Medication Instructions Recorded aspirin 81 mg tablet,delayed 81 mg PO DAILY #30 tabs 02/22/21 release atorvastatin 40 mg tablet 40 mg PO BEDTIME #30 tabs 02/22/21 metformin 500 mg tablet 500 mg PO BID #60 tabs 02/22/21 cephalexin 500 mg capsule 500 mg PO QID 5 days #20 caps 12/30/22 clotrimazole 1 % topical cream 1 appl topical BID 2 weeks #30 12/30/22 (Antifungal (clotrimazole)) grams metformin 500 mg tablet 500 mg PO BID 30 days #60 tabs 12/30/22 Allergies Allergy/AdvReac Type Severity Reaction Status Date / Time No Known Allergies Allergy Unverified 02/24/20 16:38 Review of Systems Review of Systems: Yes all other systems are reviewed and are negative Constitutional: Constitutional: Reports as per [facility] Past Medical History Medical History (Updated 12/31/22 @ 00:02 by Background Daemon) Acute CVA (cerebrovascular accident) No known health problems No known health problems Word finding difficulty Social History Social History Household Members: Family Housing: House Do you presently have visiting nurse or other home services: No Alcohol intake: current Alcohol intake frequency: holidays/special occasions only Patient Tobacco Use Status: Never used Tobacco Substance Use Type: Crack/Cocaine Advance Directives: No Advance Directives Information Provided: No service: No Current occupational status: retired Physical Exam ED Vital Signs: Vital Signs - 24 hr 12/30/22 14:14 Temperature 96.8 F Pulse Rate 113 H Respiratory Rate 18 Blood Pressure 142/94 H Pulse Oximetry 97 Oxygen Delivery Method Room Air BMI result Body Mass Index 33.3 Const General: cooperative, comfortable and no acute distress Orientation/consciousness: patient oriented x3 Limitations: no limitations HENMT Head: Yes normal to inspection, Yes normocephalic and Yes atraumatic Ears: hearing grossly normal bilaterally General nose exam: Normal external nose present Face and sinus: Yes normal facial exam Mouth: Normal oral and palatal mucosa present, oropharynx normal and moist mucous membranes Throat: Yes posterior oropharynx normal Eyes General: appearance normal, both eyes and all related structures Eyelids: Yes eyelids normal Conjunctivae: conjunctivae normal Sclerae: sclerae normal Pupils: Equal, round and reactive pupils present EOM: EOMs intact bilaterally Neck Neck: Yes normal visual inspection, Yes full ROM and Yes no lymphadenopathy Lymphatic: no lymphadenopathy noted Chest Chest palpation & inspection: normal inspection of the chest Resp Effort & Inspection: normal respiratory effort and able to speak in complete sentences Auscultation: clear to auscultation bilaterally, no crackles, no rales, no rhonchi and no wheezes Cardio Rate: regular rate Rhythm: regular rhythm Heart sounds: S1 normal heart sound present and S2 normal heart sound present GI Inspection: Yes normal to inspection Palpation (GI): Soft to palpation, nontender and no guarding Other: exam performed with macadam raker present at all times. Dionne Al LPN. Uncircumcised male, able to fully retract foreskin which appears mildly erythematous and mildly edematous with cracking to the anterior surface with white drainage noted. No penile ulcerations or lesions noted. No testicular pain, edema, or palpable masses. No erythema extending towards the perineum. Skin General skin exam: no rashes or lesions noted Trauma: no lacerations or abrasions Wounds: no wounds Neuro General: patient oriented x3 and moves all extremities Cranial nerves: Yes Equal, round and reactive pupils present Extrem General: Yes normal to inspection Right upper extremity: normal to inspection Left upper extremity: normal to inspection Right lower extremity: normal to inspection Left lower extremity: normal to inspection Course Course Course Narrative: RME- 52 year old male presents for evaluation of urinary frequency and penile pain to the glans with burning, He reports that he is not circumsized. Plan for UA Reevaluation(s) Reevaluation #1: Point of care glucose 417. Discussed with patient that he has diabetes. He was unaware of this diagnosis. Given the circumstances, and hyperglycemia, will obtain basic labs, and beta hydroxybutyrate. Time: 18:20 Reevaluation #2: Negative beta hydroxybutyrate, glucose 451.Patient is not in DKA Discussed these results with patient, will medicate with 1 L of IV fluids. Will recheck blood glucose level after receiving IV fluids. Given sign-out to Hipolito arguello pending IV hydration and repeat POC. Time: 19:21 Medications Administered Discontinued Medications Generic Name Dose Route Start Last Admin Trade Name Freq PRN Reason Stop Dose Admin Sodium Chloride 1,000 mls @ 999 mls/hr 12/30/22 19:13 12/30/22 21:06 Ns IV 12/30/22 20:13 Infused .Q1H1M ONE Infusion Medical Decision Making Medical Decision Making [facility] Narrative: This is a 52-year-old male, with past medical history of CVA, presenting to the emergency department with complaints of penile irritation x2 weeks. Patient reports urinary frequency, polyuria, and stinging sensation upon urination. Urinalysis revealing glucosuria. Upon review of medical records, patient was told that he had diabetes in 2020, I had this discussion with patient he does not recall this conversation. His prescribed metformin at that time however patient reports that he never took this medication. He has not followed up with his primary care physician since 2020. Point of care was obtained and was 417. Given hyperglycemia, will obtain basic labs. Labs within normal limits, unlikely DKA. exam consistent with balanitis, will treat for fungal and bacterial infection. Patient has no concerns for sexually transmitted infections as he is not sexually active at this time. Differential Diagnosis Differential Diagnoses: The differential diagnosis associated with the presentation includes Balanitis, phimosis, paraphimosis, urinary tract infection, DKA, hyperglycemia, new onset diabetes Admission/Observation Consideration of admission/observation: Escalation of care including admission/observation considered Patient would have been admitted to the hospital had his work up had any findings where hospital admission was appropriate and his clinical presentation warranted hospital admission. Lab Data MDM Lab Attestation statement: I reviewed the patient's lab results. See above 12/30/22 18:26 12/30/22 18:26 Labs: Lab Results 12/30/22 12/30/22 12/30/22 Range/Units 17:36 18:08 18:26 WBC (4.8-10.8) X10*3/uL RBC (4.60-5.80) X10*6/uL Hgb (14.0-18.0) g/dl Hct (42.0-52.0) % MCV (80.0-98.0) fL MCH (27.0-33.0) pg MCHC (31.0-36.0) g/dl RDW (11.0-16.0) % Plt Count (160-400) X10*3/uL MPV (9.4-12.4) fL Immature Gran % (Auto) (0.0-0.4) % Neut % (Auto) (45-73) % Lymph % (Auto) (20-40) % [place] % (Auto) (2-11) % Eos % (Auto) (0-4) % Baso % (Auto) (0-2) % Lymph # (Auto) (1.2-4.9) X10*3/uL [place] # (Auto) (0.1-1.2) X10*3/uL Eos # (Auto) (0.0-0.4) X10*3/uL Baso # (Auto) (0.0-0.2) X10*3/uL Abs Immat Gran (auto) (0.00-0.03) X10*3/uL Absolute Neuts (auto) (2.0-8.3) x10*3/uL Absolute Nucleated RBC (0.0-0.012) X10*3/uL Nucleated RBC % (auto) (0.0-0.2) /100WBC Sodium 133 L (135-145) mmol/L Potassium 4.4 D (3.3-5.1) mmol/L Chloride 98 (96-108) mmol/L Carbon Dioxide 26 (22-29) mmol/L Anion Gap 13 (12-20) BUN 9 (9-16) mg/dL Creatinine 1.06 (0.5-1.4) mg/dL Estim Creat Clear Calc 88.1 Estimated GFR > 60 POC Glucose 417 H* (60-115) mg/dL Random Glucose 451 H* (60-115) mg/dL Calcium 9.3 (8.4-10.2) mg/dL Total Bilirubin 0.6 (0.0-1.0) mg/dL Direct Bilirubin 0.2 (0.0-0.5) mg/dL AST 19 (5-37) U/L ALT 39 (0-40) U/L Alkaline Phosphatase 132 H (39-117) U/L Total Protein 8.3 H (6.5-8.0) g/dL Albumin 3.9 (3.5-5.0) g/dL Beta-Hydroxybutyrate 0.10 (0.02-0.27) mmol/L Urine Color Yellow Urine Appearance Clear Urine pH 5.5 (5.0-9.0) Ur Specific [place] 1.025 (1.005-1.025) Urine Protein Negative (Neg-Trace) mg/dL Urine Glucose (UA) >=1000 H (Negative) mg/dL Urine Ketones Negative (Negative) mg/dL Urine Blood Negative (Negative) Urine Nitrite Negative (Negative) Ur Leukocyte Esterase Negative (Negative) Urine RBC 0-2 (0-2) /HPF Urine WBC 0-5 (0-5) /HPF Ur Squamous Epith Cells 0-2 (0-2) /HPF Urine Bacteria None Seen (None Seen) Hyaline Casts 0-2 (0-2) /LPF 12/30/22 12/30/22 Range/Units 18:26 20:57 WBC 10.8 (4.8-10.8) X10*3/uL RBC 4.99 (4.60-5.80) X10*6/uL Hgb 15.0 (14.0-18.0) g/dl Hct 44.8 (42.0-52.0) % MCV 89.8 (80.0-98.0) fL MCH 30.1 (27.0-33.0) pg MCHC 33.5 (31.0-36.0) g/dl RDW 12.0 (11.0-16.0) % Plt Count 306 (160-400) X10*3/uL MPV 10.4 (9.4-12.4) fL Immature Gran % (Auto) 0.2 (0.0-0.4) % Neut % (Auto) 64.2 (45-73) % Lymph % (Auto) 28.0 (20-40) % [place] % (Auto) 6.4 (2-11) % Eos % (Auto) 1.0 (0-4) % Baso % (Auto) 0.2 (0-2) % Lymph # (Auto) 3.0 (1.2-4.9) X10*3/uL [place] # (Auto) 0.7 (0.1-1.2) X10*3/uL Eos # (Auto) 0.1 (0.0-0.4) X10*3/uL Baso # (Auto) 0.0 (0.0-0.2) X10*3/uL Abs Immat Gran (auto) 0.02 (0.00-0.03) X10*3/uL Absolute Neuts (auto) 6.9 (2.0-8.3) x10*3/uL Absolute Nucleated RBC 0.000 (0.0-0.012) X10*3/uL Nucleated RBC % (auto) 0.0 (0.0-0.2) /100WBC Sodium (135-145) mmol/L Potassium (3.3-5.1) mmol/L Chloride (96-108) mmol/L Carbon Dioxide (22-29) mmol/L Anion Gap (12-20) BUN (9-16) mg/dL Creatinine (0.5-1.4) mg/dL Estim Creat Clear Calc Estimated GFR POC Glucose 302 H (60-115) mg/dL Random Glucose (60-115) mg/dL Calcium (8.4-10.2) mg/dL Total Bilirubin (0.0-1.0) mg/dL Direct Bilirubin (0.0-0.5) mg/dL AST (5-37) U/L ALT (0-40) U/L Alkaline Phosphatase (39-117) U/L Total Protein (6.5-8.0) g/dL Albumin (3.5-5.0) g/dL Beta-Hydroxybutyrate (0.02-0.27) mmol/L Urine Color Urine Appearance Urine pH (5.0-9.0) Ur Specific [place] (1.005-1.025) Urine Protein (Neg-Trace) mg/dL Urine Glucose (UA) (Negative) mg/dL Urine Ketones (Negative) mg/dL Urine Blood (Negative) Urine Nitrite (Negative) Ur Leukocyte Esterase (Negative) Urine RBC (0-2) /HPF Urine WBC (0-5) /HPF Ur Squamous Epith Cells (0-2) /HPF Urine Bacteria (None Seen) Hyaline Casts (0-2) /LPF Radiology Impression Discussion of test interpretation with radiology: I have reviewed the radiologist's reading. Discharge Plan Discharge Clinical Impression: Balanitis, Diabetes mellitus, new onset Patient Disposition: Home, Self-Care Instructions: Meal Planning with Diabetes Exchanges (DC), Balanitis (ED), Diabetes and Your Skin (ED), Diabetes and Your Mouth (ED), Diabetes and Nutrition (ED), Diabetes and Exercise (ED) Additional Instructions: Please keep genitalia clean and dry. Take prescribed medication as directed. You have diabetes, we are starting you on metformin today. Please call your primary care physician tomorrow as they need to follow you further for diabetes diagnosis. Please return with any new or worsening symptoms. Prescriptions: New clotrimazole [Antifungal (clotrimazole)] 1 % cream 1 appl topical BID 14 Days Qty: 30 0RF cephalexin 500 mg capsule 500 mg PO QID 5 Days Qty: 20 0RF metformin 500 mg tablet 500 mg PO BID 30 Days Qty: 60 0RF No Action atorvastatin 40 mg Tablet 40 mg PO BEDTIME Qty: 30 0RF aspirin 81 mg Tablet,Delayed Release (Dr/Ec) 81 mg PO DAILY Qty: 30 0RF metformin 500 mg tablet 500 mg PO BID Qty: 60 0RF Interventions: ED Discharge Assessment Last Done: 12/30/22 21:12 Discharge Date/Time: 12/30/22 21:13
[2022-12-30 14:14] VITALS: BP 142/94; PULSE 113; RESP 18; TEMP 36; O2SAT 97; BMI 33.3
[2022-12-30 17:48] LABS: Appearance Urine Clear; Color Urine Yellow; Glucose Urine UA >=1000 mg/dL (Negative); Leukocyte Esterase Urine Negative (Negative); Nitrite Urine Negative (Negative); PH 5.5 (5.0-9.0); Specific Gravity - Urine 1.025 (1.005-1.025); UMIC TRIGGER UACC YES; Urine Blood Negative (Negative); Urine Ketones Negative (Negative); Urine Protein Negative (Neg-Trace)
[2022-12-30 17:50] LABS: Bacteria Urine None Seen (None Seen); Hyaline Casts Urine 0-2 /LPF (0-2); RBC Urine 0-2 /HPF (0-2); Squamous Epithelial Cell Urine 0-2 /HPF (0-2); WBC Urine 0-5 /HPF (0-5)
[2022-12-30 18:14] LABS: Glucose, Whole Blood 417 mg/dL (60-115)
[2022-12-30 18:31] LABS: MANUAL DIFF FLAG NO
[2022-12-30 18:47] LABS: Basophils Percent Auto 0.2 % (0-2); Eosinophils Absolute Auto 0.1 X10*3/uL (0.0-0.4); Hematocrit 44.8 % (42.0-52.0); Imm Gran Abs Auto 0.02 X10*3/uL (0.00-0.03); Imm Gran Pct Auto 0.2 % (0.0-0.4); Mean Corpuscular HGB Conc 33.5 g/dl (31.0-36.0); Mean Corpuscular Hemoglobin 30.1 pg (27.0-33.0); Mean Corpuscular Volume 89.8 fL (80.0-98.0); Mean Platelet Volume 10.4 fL (9.4-12.4); Monocytes Absolute Auto 0.7 X10*3/uL (0.1-1.2); Monocytes Percent Auto 6.4 % (2-11); Neutrophils Absolute Auto 6.9 x10*3/uL (2.0-8.3); Neutrophils Percent Auto 64.2 % (45-73); Platelet Count 306 X10*3/uL (160-400); Red Blood Count 4.99 X10*6/uL (4.60-5.80); White Blood Count 10.8 X10*3/uL (4.8-10.8)
[2022-12-30 18:52] LABS: Alanine Aminotransferase 39 U/L (0-40); Albumin Level 3.9 g/dL (3.5-5.0); Alkaline Phosphatase 132 U/L (39-117); Anion Gap 13 (12-20); Aspartate Amino Transferase 19 U/L (5-37); Bilirubin Direct 0.2 mg/dL (0.0-0.5); Bilirubin Total 0.6 mg/dL (0.0-1.0); Blood Urea Nitrogen 9 mg/dL (9-16); Calcium 9.3 mg/dL (8.4-10.2); Carbon Dioxide 26 mmol/L (22-29); Chloride 98 mmol/L (96-108); Creatinine Clr Calc Pharmacy 88.1; Estimated Glomerular Filt Rate > 60; Glucose Random 451 mg/dL (60-115); Potassium 4.4 mmol/L (3.3-5.1); Sodium 133 mmol/L (135-145); Total Protein 8.3 g/dL (6.5-8.0)
[2022-12-30] MEDS: 0.9 % Sodium Chloride 1,000 ML 999 ML IV (19:32)
[2022-12-30 21:01] LABS: Glucose, Whole Blood 302 mg/dL (60-115)
== END 2022-12-30 21:13 | disposition home or self-care (01) ==
PROVIDERS: Physician Assistant; Physician Assistant Medical; Emergency Provider Student in an Organized Health Care Education/Training Program
DX: N48.1 Balanitis (principal); E11.9 Type 2 diabetes mellitus without complications; Z86.73 Personal history of transient ischemic attack (TIA), and cerebral infarction without residual deficits; Z79.82 Long term (current) use of aspirin; Z79.899 Other long term (current) drug therapy
CPT/HCPCS: 36415; 80048; 80076; 81001; 82010; 82947; 85025; 96360; 96361; 99283; 99284

== ENCOUNTER 2023-05-14 08:23 | Inpatient (IN) | payer MEDICAID, SELFPAY ==
[2023-05-14] VITALS (7 sets, daily range): BP systolic 72–115; BP diastolic 40–71; PULSE 73–93; RESP 12–18; TEMP 36.6–36.8; O2SAT 94–98; BMI 31.8; BMI 31.4
--- NOTE | ~2023-05-14 | XR_ITS ---
EXAMINATION: XR CHEST CLINICAL INFORMATION: Bronchitis, cough. COMPARISON: Chest radiograph 02/20/2021. TECHNIQUE: AP view of the chest was obtained. FINDINGS: Normal appearance of the cardiomediastinal silhouette. No focal consolidation, pleural effusion or pneumothorax. Central peribronchial cuffing. No acute osseous findings. Visualized upper abdomen is within normal limits. XR/XR chest 1V IMPRESSION: Central peribronchial cuffing which can be seen with a small airways process such as bronchitis or atypical/viral infection.
--- NOTE | ~2023-05-14 | CT_ITS ---
CT ANGIOGRAM NECK WITH CONTRAST CT ANGIOGRAM BRAIN WITH CONTRAST CLINICAL INFORMATION: Weakness and dysarthria. Rule out stroke. COMPARISON: CTA head and neck February 21, 2021. TECHNIQUE: Test bolus sequences followed by intravenous administration 70 mL of Omnipaque 350. Helical imaging was performed in the axial plane from the thoracic inlet to the skull vertex. Delayed postcontrast imaging of the head was also performed. The data was processed at the technologist infectious disease workstation for generation of MIP sequences. Angled MIPs and volume rendered reformatted images were also generated at an offline 3D workstation under concurrent supervision. Stenoses are assessed in accordance with NASCET criteria unless otherwise indicated. This CT examination was performed using dose optimization techniques as appropriate, variously including the following: *Automated exposure control *Adjustment of mA and/or kV according to patient size (this includes techniques or standardized protocols for targeted exams where dose is matched to indication/reason for exam; i.e. extremities or head) *Use of iterative reconstruction technique FINDINGS: BRAIN: [A small chronic infarct within the periphery of the left frontal lobe is stable. There is no intracranial hemorrhage, hydrocephalus, extra-axial surface collection, midline shift, or other herniation pattern. [place] to white matter differentiation is diffusely maintained without evidence of an evolved acute territorial infarct. The basilar cisterns are preserved. No significant soft tissue abnormality. No acute osseous abnormality. Mucosal thickening throughout the paranasal sinuses. CERVICAL SOFT TISSUES AND LUNG APICES: There is multilevel cervical spondylosis. NECK CTA: [There is a classic 3 vessel configuration of the aortic arch. Proximal arch vessels are non-stenotic. The vertebral arteries are codominant. No significant ostial stenosis is visualized on either side. Both vertebral arteries are widely patent throughout their extracranial cervical course. Both common carotid arteries are normal in course and caliber.] There is mild atherosclerotic calcification involving the carotid bifurcations bilaterally without significant stenosis involving the proximal internal carotid arteries on either side. BRAIN CTA: Progressive severe steno-occlusive disease/partial occlusion of the distal left M1 MCA segment. There is reconstitution of the more distal left MCA sylvian branches. No additional significant arterial stenoses intracranially. No significant arterial stenoses within the neck. CT/CT angio head neck stroke IMPRESSION: - No acute intracranial findings. Small chronic infarcts within the left frontoparietal lobe. There is new acute neurologic deficit, MRI would be more sensitive in evaluation. - Progressive severe steno-occlusive disease/partial occlusion of the distal left M1 MCA segment and new partial occlusion of the proximal superior left M1 MCA division. There is reconstitution of the more distal left MCA sylvian branches without significant oligemia appreciated within the left MCA territory on the MIP images. Findings discussed with Dr. Moya at 9:58 AM on May 14, 2023
--- NOTE | ~2023-05-14 | MR_ITS ---
EXAMINATION: MRI OF THE BRAIN WITHOUT CONTRAST CLINICAL INFORMATION: TIA/CVA. COMPARISON: CTA of the head and neck 05/14/2023. MRI scan of the brain 02/21/2021. TECHNIQUE: MRI of the brain was obtained using routine sequences without contrast. Some images are degraded by patient motion artifact. FINDINGS: There are multiple small foci of restricted diffusion in the left frontoparietal and left parieto-occipital regions, consistent with acute infarcts. Some of these areas have corresponding hyperintense FLAIR signal. There is no evidence of hemorrhagic transformation in these regions. No mass effect or midline shift is seen. The ventricles and sulci are normal in size. In addition to the signal changes described above there are multiple scattered foci of hyperintense T2 and FLAIR signal which are nonspecific, Gadavist consistent with sequelae of chronic microvascular ischemic changes. There are areas of increased T2/FLAIR signal in the left frontal and left frontoparietal regions small peripherally, consistent with gliotic changes; areas of restricted diffusion were demonstrated in these areas on the prior MRI scan. No extra-axial fluid collections are seen. The brainstem and cerebellum are normal. No pathologic magnetic susceptibility artifact is identified on the gradient refocused acquisition. The craniovertebral junction, marrow signal, and midline structures are; there is a partially empty sella. The flow voids in the distal left M1 region are not visualized. The other intracranial flow-voids at the level of the [place] are preserved. The dural venous sinus flow-voids are maintained the mastoid air cells are well-aerated. There is mucoperiosteal thickening in the bilateral maxillary, bilateral ethmoid and left frontal and sphenoid sinuses. MR/MR head/brain wo con IMPRESSION: 1. There are multiple small foci of restricted diffusion in the left frontoparietal and left parieto-occipital regions, consistent with areas of acute infarction. There is no evidence of hemorrhagic transformation. 2. There are multiple scattered foci of hyperintense T2 and FLAIR signal in the white matter as described above, most consistent with sequelae of chronic microvascular ischemic change. 3. The flow voids in the distal left M1 region are not visualized.
--- NOTE | ~2023-05-14 | CT_ITS ---
EXAMINATION: CT HEAD WITHOUT CONTRAST (STROKE PROTOCOL) CLINICAL INFORMATION: Stroke protocol. Speech weakness. Rule out stroke. Past history of left cerebral ischemia. COMPARISON: CT and MRI brain 02/21/2021. TECHNIQUE: Contiguous axial imaging was performed from the skull base to vertex without intravenous administration of contrast. This CT examination was performed using dose optimization techniques as appropriate, variously including the following: *Automated exposure control *Adjustment of mA and/or kV according to patient size (this includes techniques or standardized protocols for targeted exams where dose is matched to indication/reason for exam; i.e. extremities or head) *Use of iterative reconstruction technique DLP: 646 mGy-cm FINDINGS: There is no acute intra-axial, extra-axial bleed, masses or midline shift. There is no acute infarction in evolution. There is a small lacunar infarction seen in the left frontal lobe in the area of previous ischemia on axial slice 23/5. There is no edema or mass effect. The [place] to white matter differentiation is maintained normal. The lateral ventricles are symmetrical in size and configuration without enlargement. Bone windows reveal no calvarial abnormality. There is bilateral ethmoid and maxillary sinus mucoperiosteal thickening. No scalp soft tissue abnormality seen. The soft tissues are normal. The mastoid sinuses are clear. CT/CT head for stroke IMPRESSION: No acute intracranial process. This critical result was discussed with Dr. Abel Moya at 9:29 AM on 05/14/2023. It was ascertained that the content and urgency of the report was understood at the time of direct communication.
--- NOTE | 2023-05-14 09:04 | ED.NEUROSD ---
HPI - Neuro Symptoms/Deficit General Chief Complaint: Stroke Stated Complaint: Elevated Blood Sugar Time Seen by Provider: 05/14/23 09:03 Source: patient Mode of arrival: ambulatory Limitations: no limitations History of Present Illness HPI Narrative: 53-year-old male with history of diabetes mellitus, left frontal parietal lobe stroke 02/20/2021 with dysarthric speech at that time who presents emergency department for evaluation of difficulty talking. He states the symptoms began at 07:45 hours while he was at work. States that he went to the bathroom any had difficulty putting his pants on secondary to right arm was weak any felt he was having difficulty finding words. He felt dizzy. He states that both his legs felt weak. He was at work and apparently had difficulty talking to his colleagues therefore he drove himself to the emergency department. Initially triaged he was able to talk, his blood pressure was high but then he developed dysarthric speech, right facial droop, and his blood pressure went down to 72/40. He was brought immediately back to the emergency department. When I evaluated the patient his face appear to be symmetric but his speech was dysarthric, he is able to tell me his name and give me some history. Point of care glucose was 116. Patient was brought immediately to the CT scan. While the patient was being wheeled to the CT scan, his symptoms improved . His speech returned to normal. In reviewing his record, the patient was here from 02/20/2021 until 02/22/2021 with left frontal parietal lobe stroke with high-grade stenosis of the distal M1 segment of the left MCA. At that time was also diagnosed with type 2 diabetes and cocaine use disorder. Related Data Previous Rx's Medication Instructions Recorded aspirin 81 mg tablet,delayed 81 mg PO DAILY #30 tabs 02/22/21 release atorvastatin 40 mg tablet 40 mg PO BEDTIME #30 tabs 02/22/21 metformin 500 mg tablet 500 mg PO BID #60 tabs 02/22/21 Allergies Allergy/AdvReac Type Severity Reaction Status Date / Time No Known Allergies Allergy Unverified 05/14/23 08:49 [facility] Past Medical History Medical History (Updated 05/14/23 @ 10:48 by Nikolay Cohen MD) Acute CVA (cerebrovascular accident) No known health problems No known health problems Word finding difficulty Social History Social History Household Members: Family Housing: House Do you presently have visiting nurse or other home services: No Alcohol intake: current Alcohol intake frequency: holidays/special occasions only Patient Tobacco Use Status: Never used Tobacco Smoked in Last 30 Days: No Use of substances other than those prescribed or required for medical reasons: No Substance Use Type: Crack/Cocaine Advance Directives: No service: No Current occupational status: retired Physical Exam Vital Signs: Vital Signs: Last Vital Signs Temp 97.8 F 05/14/23 12:07 Pulse 73 05/14/23 12:07 Resp 12 05/14/23 12:07 BP 105/61 05/14/23 12:07 Pulse Ox 94 05/14/23 12:07 O2 Del Method Room Air 05/14/23 12:07 BMI result Body Mass Index 31.4 Vital signs revealed low blood pressure 70 to her 40 otherwise unremarkable Exam: General: Awake, alert in no distress Head: Normocephalic, atraumatic EENT: PERRL, Lids normal, sclera normal, conjunctiva normal, nose normal , ears normal, throat without erythema or exudates Neck: Supple, no adenopathy, no trachea midline or C-spine tenderness Lung: breath sounds symmetric, no wheezing, rales or rhonchi Chest: symmetric movement, nontender Heart: regular rate and rhythm, normal S1, S2 no murmurs or rubs Abdomen: soft, non-tender, nondistended, normal bowel sounds Back: no vertebral tenderness, no CVAT Extremities: no deformities, moves all extremities symmetrically Neuro: Awake, alert, oriented, normal speech, cranial nerves intact, moves all extremities symmetrically Psych: Pleasant, cooperative Medications Administered Discontinued Medications Generic Name Dose Route Start Last Admin Trade Name Toyq PRN Reason Stop Dose Admin Aspirin 162 mg 05/14/23 09:36 05/14/23 10:27 Aspirin 81 Mg Tab.Chew PO 05/14/23 09:37 162 mg ONCE ONE Administration Sodium Chloride 1,000 mls @ 999 mls/hr 05/14/23 10:06 05/14/23 11:30 Ns IV 05/14/23 11:06 Infused .Q1H1M STA Infusion Iohexol 70 ml 05/14/23 09:32 05/14/23 09:33 Iohexol 350 Mg/Ml 75 Ml Infus..Btl IV 05/14/23 09:33 70 ml ONCE ONE Administration Medical Decision Making Medical Decision Making [facility] Narrative: 53-year-old male with history of diabetes mellitus, left frontal parietal lobe stroke 02/20/2021 with dysarthric speech, cocaine use disorder who presents emergency department for evaluation of staggering stroke-like symptoms with periods where he has returned to normal, symptoms initially began at 07:45 hours after he went to the bathroom and noted was not able to pull his pants up secondary to right hand weakness. He then developed dysarthric speech. Initially in the emergency department he appeared to be normal, blood pressure was high but then dropped and he had dysarthric speech with a right facial droop. I noted dysarthric speech but the droop resolved. While he is being brought to the CT scan his symptoms completely resolved and his speech returned to normal. Following evaluation was ordered: CBC, BMP, liver panel, magnesium, PT/INR, PTT, troponin, drug screen, ethanol level, point of care glucose, urinalysis, CT scan of the head without IV contrast, CT angiogram head and neck. 09:34 I did discuss the patient's presentation with the covering neurologist, Dr. Cohen. Given the staggering course of this presentation and the fact that he has completely normal at this time, he is not a tPA candidate. Dr. Cohen recommended keeping his blood pressure on the high side to prevent hypoperfusion. The radiologist, Dr. Ron, called the inform me that the CT scan of the brain revealed no acute process. We did discuss the patient's previous MRI and CT angiogram of the head and neck as well. Current study is pending. Given his negative CT scan I did order aspirin 162 mg to chew normal saline x1 L. 10:09 CT angiogram head and neck did not reveal any acute retrievable clots however patient does have progression his stent occlusive disease of the distal left M1 MCA segment with new partial conclusions of the proximal left M1 MCA division with reconstitution or distal. Given the fact that the patient is now completely back, I do not think that he is a thrombolytics candidate or clot retrieval candidate. 15:17 Patient was accepted by the admitting hospitalist, Dr. Byrd Differential Diagnosis Differential Diagnoses: The differential diagnosis associated with the presentation includes Differential diagnosis includes was not limited to acute stroke, staggering stroke, TIA, hypoperfusion, drug use disorder, anemia, electrolyte abnormality Admission/Observation Consideration of admission/observation: Escalation of care including admission/observation considered Consult Healthcare Provider Management of the patient was discussed with: Hospitalist Lab Data MDM Lab Attestation statement: I reviewed the patient's lab results. My interpretation patient's laboratory evaluation is as follows: CBC was normal. PT/INR normal. BUN creatinine elevated 17 and 1.43 -above baseline. Ethanol was below detectable limits. Urine drug screen pending collection. 05/14/23 09:48 05/14/23 09:48 Labs: Lab Results 05/14/23 05/14/23 05/14/23 Range/Units 09:07 09:43 09:48 WBC 4.3 L (4.8-10.8) X10*3/uL RBC 5.15 (4.60-5.80) X10*6/uL Hgb 15.3 (14.0-18.0) g/dl Hct 46.1 (42.0-52.0) % MCV 89.5 (80.0-98.0) fL MCH 29.7 (27.0-33.0) pg MCHC 33.2 (31.0-36.0) g/dl RDW 12.8 (11.0-16.0) % Plt Count 212 D (160-400) X10*3/uL MPV 10.3 (9.4-12.4) fL Immature Gran % (Auto) 0.2 (0.0-0.4) % Neut % (Auto) 66.2 (45-73) % Lymph % (Auto) 20.2 (20-40) % Gibson % (Auto) 13.0 H (2-11) % Eos % (Auto) 0.2 (0-4) % Baso % (Auto) 0.2 (0-2) % Lymph # (Auto) 0.9 L (1.2-4.9) X10*3/uL Gibson # (Auto) 0.6 (0.1-1.2) X10*3/uL Eos # (Auto) 0.0 (0.0-0.4) X10*3/uL Baso # (Auto) 0.0 (0.0-0.2) X10*3/uL Abs Immat Gran (auto) 0.01 (0.00-0.03) X10*3/uL Absolute Neuts (auto) 2.8 (2.0-8.3) x10*3/uL Absolute Nucleated RBC 0.000 (0.0-0.012) X10*3/uL Nucleated RBC % (auto) 0.0 (0.0-0.2) /100WBC PT 12.9 (11.1-13.3) SEC Whole Blood PT 13.8 H (11.1-13.5) sec INR 1.1 (0.9-1.1) Whole Blood INR 1.2 H (0.9-1.1) APTT 30.2 (26.0-36.4) SEC Sodium 137 (135-145) mmol/L Potassium 4.0 (3.3-5.1) mmol/L Chloride 101 (96-108) mmol/L Carbon Dioxide 26 (22-29) mmol/L Anion Gap 14 (12-20) BUN 17 H (9-16) mg/dL Creatinine 1.43 H (0.5-1.4) mg/dL Estim Creat Clear Calc 62.7 Estimated GFR 51 POC Glucose 116 H (60-115) mg/dL Random Glucose 122 H (60-115) mg/dL Calcium (8.4-10.2) mg/dL Magnesium (1.6-2.6) mg/dL Total Bilirubin (0.0-1.0) mg/dL Direct Bilirubin (0.0-0.5) mg/dL AST (5-37) U/L ALT (0-40) U/L Alkaline Phosphatase (39-117) U/L Total Creatine Kinase (38-174) U/L Troponin I High Sens (<3.5-35.0) ng/L Total Protein (6.5-8.0) g/dL Albumin (3.5-5.0) g/dL Urine Color Urine Appearance Urine pH (5.0-9.0) Ur Specific [place] (1.005-1.025) Urine Protein (Neg-Trace) mg/dL Urine Glucose (UA) (Negative) mg/dL Urine Ketones (Negative) mg/dL Urine Blood (Negative) Urine Nitrite (Negative) Ur Leukocyte Esterase (Negative) Urine RBC (0-2) /HPF Urine WBC (0-5) /HPF Ur Squamous Epith Cells (0-2) /HPF Urine Bacteria (None Seen) Hyaline Casts (0-2) /LPF Urine Opiates Screen (Not Detect) Urine Fentanyl Screen (Not Detect) Ur Barbiturates Screen (Not Detect) Ur Phencyclidine Scrn (Not Detect) Ur Amphetamines Screen (Not Detect) U Benzodiazepines Scrn (Not Detect) Urine Cocaine Screen (Not Detect) U Marijuana (THC) Screen (Not Detect) Ethyl Alcohol mg/dL 05/14/23 05/14/23 Range/Units 09:48 14:04 WBC (4.8-10.8) X10*3/uL RBC (4.60-5.80) X10*6/uL Hgb (14.0-18.0) g/dl Hct (42.0-52.0) % MCV (80.0-98.0) fL MCH (27.0-33.0) pg MCHC (31.0-36.0) g/dl RDW (11.0-16.0) % Plt Count (160-400) X10*3/uL MPV (9.4-12.4) fL Immature Gran % (Auto) (0.0-0.4) % Neut % (Auto) (45-73) % Lymph % (Auto) (20-40) % Gibson % (Auto) (2-11) % Eos % (Auto) (0-4) % Baso % (Auto) (0-2) % Lymph # (Auto) (1.2-4.9) X10*3/uL Gibson # (Auto) (0.1-1.2) X10*3/uL Eos # (Auto) (0.0-0.4) X10*3/uL Baso # (Auto) (0.0-0.2) X10*3/uL Abs Immat Gran (auto) (0.00-0.03) X10*3/uL Absolute Neuts (auto) (2.0-8.3) x10*3/uL Absolute Nucleated RBC (0.0-0.012) X10*3/uL Nucleated RBC % (auto) (0.0-0.2) /100WBC PT (11.1-13.3) SEC Whole Blood PT (11.1-13.5) sec INR (0.9-1.1) Whole Blood INR (0.9-1.1) APTT (26.0-36.4) SEC Sodium (135-145) mmol/L Potassium (3.3-5.1) mmol/L Chloride (96-108) mmol/L Carbon Dioxide (22-29) mmol/L Anion Gap (12-20) BUN (9-16) mg/dL Creatinine (0.5-1.4) mg/dL Estim Creat Clear Calc Estimated GFR POC Glucose (60-115) mg/dL Random Glucose 122 H (60-115) mg/dL Calcium 8.8 (8.4-10.2) mg/dL Magnesium 2.2 (1.6-2.6) mg/dL Total Bilirubin 0.3 (0.0-1.0) mg/dL Direct Bilirubin 0.2 (0.0-0.5) mg/dL AST 40 H (5-37) U/L ALT 25 (0-40) U/L Alkaline Phosphatase 68 (39-117) U/L Total Creatine Kinase 971 H (38-174) U/L Troponin I High Sens 4.9 (<3.5-35.0) ng/L Total Protein 7.4 (6.5-8.0) g/dL Albumin 3.6 (3.5-5.0) g/dL Urine Color Yellow Urine Appearance Clear Urine pH 5.5 (5.0-9.0) Ur Specific [place] >= 1.030 H (1.005-1.025) Urine Protein 30 (1+) H (Neg-Trace) mg/dL Urine Glucose (UA) Negative (Negative) mg/dL Urine Ketones Negative (Negative) mg/dL Urine Blood Negative (Negative) Urine Nitrite Negative (Negative) Ur Leukocyte Esterase Negative (Negative) Urine RBC 0-2 (0-2) /HPF Urine WBC 0-5 (0-5) /HPF Ur Squamous Epith Cells 3-5 (0-2) /HPF Urine Bacteria None Seen (None Seen) Hyaline Casts 0-2 (0-2) /LPF Urine Opiates Screen Not Detected (Not Detect) Urine Fentanyl Screen Not Detected (Not Detect) Ur Barbiturates Screen Not Detected (Not Detect) Ur Phencyclidine Scrn Not Detected (Not Detect) Ur Amphetamines Screen Not Detected (Not Detect) U Benzodiazepines Scrn Not Detected (Not Detect) Urine Cocaine Screen Not Detected (Not Detect) U Marijuana (THC) Screen Not Detected (Not Detect) Ethyl Alcohol < 10 mg/dL Independent Interpretation I performed an independent interpretation of an: EKG Interpretation: My independent interpretation patient's 12 EKG done 05/14/2023 is as follows: Normal sinus rhythm with a rate of 73, normal GA interval, QRS duration QTC interval, no ST segment elevation, no ST segment depression, no PACs, no PVCs, no significant T-wave abnormalities Radiology Impression Discussion of test interpretation with radiology: I discussed test interpretation with the radiologist and I have reviewed the radiologist's reading. Radiologist Impression: CT head for stroke IMPRESSION: No acute intracranial process. This critical result was discussed with Dr. Abel Moya at 9:29 AM on 05/14/2023. It was ascertained that the content and urgency of the report was understood at the time of direct communication. Dictated By: Lenny Ron MD CT angio head neck stroke IMPRESSION: - No acute intracranial findings. Small chronic infarcts within the left frontoparietal lobe. There is new acute neurologic deficit, MRI would be more sensitive in evaluation. - Progressive severe steno-occlusive disease/partial occlusion of the distal left M1 MCA segment and new partial occlusion of the proximal superior left M1 MCA division. There is reconstitution of the more distal left MCA sylvian branches without significant oligemia appreciated within the left MCA territory on the MIP images. Findings discussed with Dr. Moya at 9:58 AM on May 14, 2023 NIH Stroke Scale Time: 09:38 Level of Consciousness: Alert Level of Consciousness Questions: Answers both questions correctly Level of Consciousness Commands: Performs both tasks correctly Best Gaze: Normal Visual: No visual loss Facial Palsy: Normal Motor Arm (Right): No drift Motor Arm (Left): No drift Motor Leg (Right): No drift Motor Leg (Left): No drift Limb Ataxia: Absent Sensory: Normal Best Language: No aphasia Dysarthia: Normal Extinction and Inattention: No abnormality Score: 0 Critical Care Time Critical Care Time Critical Care Time: Yes Total Critical Care Time: 60 Attestation: Critical Care: The patient was critically ill with a high probability of imminent or life threatening deterioration. I spent greater than 30 minutes of discontinuous time evaluating the patient,delivering critical at the bedside, discussing and evaluating pertinent data with consultants. Critical care time does not include time spent performing separately billable procedures or teaching. Total time spent performing critical care was 60 minutes. Discharge Plan Discharge Clinical Impression: Brain TIA Patient Disposition: Admitted As Inpatient
--- NOTE | 2023-05-14 09:05 | ECG_ITS ---
Test Reason : STROKE Blood Pressure : / mmHG Vent. Rate : 073 BPM Atrial Rate : 073 BPM P-R Int : 148 ms QRS Dur : 082 ms QT Int : 390 ms P-R-T Axes : 035 -16 006 degrees QTc Int : 429 ms Normal sinus rhythm Minimal voltage criteria for LVH, may be normal variant ( R in aVL ) Borderline ECG When compared with ECG of 20-FEB-2021 20:58, No significant change was found Referred By: Terrance Moya Electronically Signed By:KB REYES
[2023-05-14 09:14] LABS: Glucose, Whole Blood 116 mg/dL (60-115)
--- NOTE | 2023-05-14 09:21 | PC.NURSE ---
pt came straight back from triage in wheelchair due to possible stroke. in triage pt had left sided facial droop per AXEL Contreras and ams. pt alert but quiet. 18G IV established to LAC, pt taken right to CT scan. will draw labs and place pt on monitor when arrives back.
--- NOTE | 2023-05-14 09:26 | PC.NURSE ---
pt poc 116. pt appears well. sts he is newly T2DM but not on medication due to insurance issues. pt has been managing DM with lifestyle/eating.
--- NOTE | 2023-05-14 09:26 | PC.NURSE ---
pt poc 114
[2023-05-14] MEDS: iohexoL 350 MG/ML 75 ML INFUS..BTL 70 ML IV (09:33)
[2023-05-14 09:53] LABS: MANUAL DIFF FLAG NO
[2023-05-14 09:57] LABS: Basophils Percent Auto 0.2 % (0-2); Eosinophils Percent Auto 0.2 % (0-4); Hematocrit 46.1 % (42.0-52.0); Hemoglobin 15.3 g/dl (14.0-18.0); Imm Gran Abs Auto 0.01 X10*3/uL (0.00-0.03); Imm Gran Pct Auto 0.2 % (0.0-0.4); Lymphocytes Absolute Auto 0.9 X10*3/uL (1.2-4.9); Lymphocytes Percent Auto 20.2 % (20-40); Mean Corpuscular HGB Conc 33.2 g/dl (31.0-36.0); Mean Corpuscular Hemoglobin 29.7 pg (27.0-33.0); Mean Corpuscular Volume 89.5 fL (80.0-98.0); Mean Platelet Volume 10.3 fL (9.4-12.4); Monocytes Absolute Auto 0.6 X10*3/uL (0.1-1.2); Neutrophils Absolute Auto 2.8 x10*3/uL (2.0-8.3); Neutrophils Percent Auto 66.2 % (45-73); Platelet Count 212 X10*3/uL (160-400); Red Blood Count 5.15 X10*6/uL (4.60-5.80); Red Cell Distribution Width 12.8 % (11.0-16.0); White Blood Count 4.3 X10*3/uL (4.8-10.8)
--- NOTE | 2023-05-14 10:02 | PC.NURSE ---
labs drawn and sent, EKG obtained, pt placed on monitor. pt responding to verbal stimuli. able to state name and date of . currently resting quietly in no distress. vss. plan of care ongoing.
[2023-05-14 10:04] LABS: INTERNATIONAL NORM RATIO 1.1 (0.9-1.1); Prothrombin Time 12.9 SEC (11.1-13.3)
[2023-05-14 10:06] LABS: Partial Thromboplastin Time 30.2 SEC (26.0-36.4)
[2023-05-14 10:10] LABS: Glucose Random 122 mg/dL (60-115)
[2023-05-14 10:17] LABS: Alanine Aminotransferase 25 U/L (0-40); Albumin Level 3.6 g/dL (3.5-5.0); Alkaline Phosphatase 68 U/L (39-117); Anion Gap 14 (12-20); Aspartate Amino Transferase 40 U/L (5-37); Bilirubin Direct 0.2 mg/dL (0.0-0.5); Bilirubin Total 0.3 mg/dL (0.0-1.0); Blood Urea Nitrogen 17 mg/dL (9-16); Calcium 8.8 mg/dL (8.4-10.2); Carbon Dioxide 26 mmol/L (22-29); Chloride 101 mmol/L (96-108); Creatinine Clr Calc Pharmacy 62.7; Estimated Glomerular Filt Rate 51; Ethanol < 10 mg/dL; Glucose Random 122 mg/dL (60-115); Magnesium 2.2 mg/dL (1.6-2.6); Sodium 137 mmol/L (135-145); Total Protein 7.4 g/dL (6.5-8.0)
[2023-05-14 10:24] LABS: Troponin-I High Sensitivity 4.9 ng/L (<3.5-35.0)
[2023-05-14] MEDS: Aspirin 81 MG TAB.CHEW 162 MG PO (10:27)
[2023-05-14] MEDS: 0.9 % Sodium Chloride 1,000 ML 999 ML IV ×2 (10:30→17:11)
--- NOTE | 2023-05-14 10:45 | P.CNNE_ITS ---
History of Present Illness Data of Consult Service Date: 05/14/23 Primary Care Provider: Unknown Physician HPI Reason for consult: Stroke 53 years old man with past history of marijuana and cocaine abuse, left middle cerebral artery infarct associated with left M1 stenosis, not taking his regular medicine stating that he lost insurance and was not following any physician. He came to hospital with symptoms of confusion and difficulty speaking. Initially he had the symptoms but when he was re-evaluated emergency room he was back to normal. Acute stroke protocol was alerted but then no acute treatment was given because of resolution of symptoms. His blood pressure at 1 point was noted to be low. He was not having any headache. Review of Systems 2 Review of Systems: No recent cold or flu-like illness or trauma. [facility] Past Medical History Medical History (Updated 05/14/23 @ 10:48 by Nikolay Cohen MD) Acute CVA (cerebrovascular accident) No known health problems No known health problems Word finding difficulty Social History Social History Household Members: Family Housing: House Do you presently have visiting nurse or other home services: No Alcohol intake: current Alcohol intake frequency: holidays/special occasions only Patient Tobacco Use Status: Never used Tobacco Smoked in Last 30 Days: No Use of substances other than those prescribed or required for medical reasons: No Substance Use Type: Crack/Cocaine Advance Directives: No service: No Current occupational status: retired Meds Allergies Allergy/AdvReac Type Severity Reaction Status Date / Time No Known Allergies Allergy Unverified 05/14/23 08:49 Active Medications: Current Medications Sodium Chloride (Ns) 1,000 mls @ 999 mls/hr IV .Q1H1M STA Stop: 05/14/23 11:06 Last Admin: 05/14/23 10:30 Dose: 999 mls/hr Physical Exam 2 Vital Signs: Vital Signs: Last Vital Signs Temp 97.8 F 05/14/23 10:31 Pulse 75 05/14/23 10:31 Resp 15 05/14/23 10:31 BP 106/60 05/14/23 10:31 Pulse Ox 94 05/14/23 10:31 O2 Del Method Room Air 05/14/23 10:31 BMI result Body Mass Index 31.4 Neuro: Other: He is alert and awake with normal spontaneity of speech fluency comprehension and anxious affect. There is mild right-sided facial weakness. Extraocular muscles are intact. Visual boone are full. There is no focal do pronator drift or weakness. Plantars are flexor. Speech is normal. Results Labs 05/14/23 09:48 05/14/23 09:48 Labs: Short CBC 05/14/23 Range/Units 09:48 WBC 4.3 L (4.8-10.8) X10*3/uL Hgb 15.3 (14.0-18.0) g/dl Hct 46.1 (42.0-52.0) % Plt Count 212 D (160-400) X10*3/uL BMP 05/14/23 09:48 Sodium 137 Potassium 4.0 Chloride 101 Carbon Dioxide 26 BUN 17 H Creatinine 1.43 H Calcium 8.8 Cardiac Enzymes 05/14/23 Range/Units 09:48 Total Creatine Kinase 971 H (38-174) U/L Liver Function 05/14/23 Range/Units 09:48 Total Bilirubin 0.3 (0.0-1.0) mg/dL Direct Bilirubin 0.2 (0.0-0.5) mg/dL AST 40 H (5-37) U/L ALT 25 (0-40) U/L Alkaline Phosphatase 68 (39-117) U/L Albumin 3.6 (3.5-5.0) g/dL CTA revealed left middle cerebral artery M1 area stand noted disease with chronic left middle cerebral artery area infarction. Assessment and Plan (1) Cerebral infarction: Qualifiers: Cerebral infarction mechanism: thrombosis Precerebral and cerebral artery: middle cerebral artery Laterality of affected vessel: left Qualified Code(s): I63.312 - Cerebral infarction due to thrombosis of left middle cerebral artery Status: Acute 53 years old man with underlying left middle cerebral artery, M1 area, stand noted disease and diabetes not following any Dr. at this time. He came to hospital with symptoms of further ischemia in that area mainstay of management is anti-platelet agent, statin, blood pressure control but avoidance of hypotension, which would result in further symptoms and stroke, and diabetic control. As far as blood thinner is concerned, I suggest baby aspirin and clopidogrel 75 mg daily for now. He said that he was not taking any blood 10 her at this time. If this combination would fail, either angioplasty or anticoagulation can be considered. Procedures Date of Service Date of Service: 05/14/23
[2023-05-14 10:47] LABS: Stroke Lab Use COMPLETE
--- NOTE | 2023-05-14 11:13 | PHA.MEDREC ---
Pharmacy Consult ? Medication Reconciliation Pharmacy has completed the medication reconciliation. Patient had insurance and provider issues and has not filled/taken metformin since december. He also states that he never started the aspirin or atorvastatin from his last CVA two years ago. Dr Anguiano made aware Isreal
[2023-05-14 14:04] LABS: Prothrombin Time Whole Bld POC 13.8 sec (11.1-13.5); ~PT, ~INR - Anti Coag Clinic 1.2 (0.9-1.1)
[2023-05-14 14:20] LABS: Appearance Urine Clear; Color Urine Yellow; Glucose Urine UA Negative (Negative); Leukocyte Esterase Urine Negative (Negative); Nitrite Urine Negative (Negative); PH 5.5 (5.0-9.0); Specific Gravity - Urine >= 1.030 (1.005-1.025); UMIC TRIGGER UACC YES; Urine Blood Negative (Negative); Urine Ketones Negative (Negative); Urine Protein 30 (1+) mg/dL (Neg-Trace)
[2023-05-14 14:22] LABS: Bacteria Urine None Seen (None Seen); Hyaline Casts Urine 0-2 /LPF (0-2); RBC Urine 0-2 /HPF (0-2); WBC Urine 0-5 /HPF (0-5)
[2023-05-14 14:29] LABS: Amphetamine Screen Urine Not Detected (Not Detect); Barbiturates, Urine Not Detected (Not Detect); Benzodiazepines Screen Urine Not Detected (Not Detect); Cannabinoid Screen Urine Not Detected (Not Detect); Cocaine Screen Urine Not Detected (Not Detect); Fentanyl, urine Not Detected (Not Detect); Opiate Screen Urine Not Detected (Not Detect); Phencyclidine Screen Urine Not Detected (Not Detect)
--- NOTE | 2023-05-14 14:36 | PC.NURSE ---
pt resting quietly on stretcher in no apparent distress. urinal at bedside. call padron within pt reach. plan of care ongoing.
--- NOTE | 2023-05-14 16:19 | PC.NURSE ---
pt passed neuro check. GCS 115.
--- NOTE | 2023-05-14 16:19 | PM.IMHP ---
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 He states that he was not confused and knew what he was trying to say but was unable to express words. At the same time, noted weakness to the right upper extremity. States that while he was walking he felt like the legs bilaterally were also weak. Denies any facial droop, paresthesias, confusion, headache. However, he does endorse feeling dizzy. He was able to drive himself to the ED and on arrival symptoms had fully resolved. However while in triage, was noted to have a blood pressure of 72/40 with recurrence of symptoms. He was also noted to have right-sided facial droop at that time. Symptoms again lasted for about 15-20 minutes before resolving. Vitals were otherwise noted to be stable. Stroke alert was called. Head CT did not reveal any acute intracranial abnormality which showed small lacunar infarct in the left frontal lobe in the area of prior ischemia. CTA of the head/neck again showed small chronic infarcts within the left frontal parietal lobe as well as progressive severe sudden occlusive disease/partial occlusion of the distal left M1 MCA segment and new partial occlusion of the proximal superior left M1 MCA division with reconstitution of the more distal left MCA branches. Kwabena did discuss case with Neurology and patient was seen while in the ED. Given full resolution of symptoms, he is not a candidate for thrombolytics or clot retrieval. Per Neurology, recommended optimizing diabetes control and increasing blood pressure to prevent hypoperfusion. While in the ED, hematology studies were unremarkable. He did have a mild GINA with creatinine 1.43, baseline around 1.06. BUN 17. Electrolytes normal. Glucose 116. Total CK 971. Trop 4.9. Pt tells me has did not drink any water at all yesterday or this morning as he hasnt been feeling well. States he has a nonproductive cough, wheezing, and chills. He does endorse myalgias, primarily in the bilateral thighs. Denies any fevers, congestion, sore throat, abd pain, n/v, diarrhea, urinary symptoms, palpitations, sob, or chest pain. Denies any sick contacts. Denies any illicit drug use or supplement use. In the ED, received 1L IV NS and 162mg asa. Review of Systems Review of Systems: General: No fevers, malaise, unintentional weight loss HEENT: No blurred vision, diplopia. No sore throat, nasal congestion, rhinorrhea, sinus pain, ear pain Cardiovascular: No chest pain, palpitations, or leg edema Respiratory: No shortness of breath. +wheezing, +cough GI: No abdominal pain, nausea, vomiting, diarrhea, constipation, melena, hematochezia : No dysuria, hematuria, increased urinary frequency, decreased urinary output MSK: No back pain. +myalgia Neuro: No headaches, paresthesias. +RUE weakness, +expressive aphasia, +lightheadedness Skin: No rashes or lesions [facility] Medical History Type 2 diabetes mellitus Cocaine abuse Acute CVA (cerebrovascular accident) Social History Household Members: Family Housing: House Do you presently have visiting nurse or other home services: No Alcohol intake: current Alcohol intake frequency: holidays/special occasions only Patient Tobacco Use Status: Never used Tobacco Smoked in Last 30 Days: No Use of substances other than those prescribed or required for medical reasons: No Substance Use Type: Crack/Cocaine Advance Directives: No service: No Current occupational status: retired Meds Allergies Allergy/AdvReac Type Severity Reaction Status Date / Time No Known Allergies Allergy Unverified 05/14/23 08:49 Physical Exam Vital Signs and Narrative: Vital Signs: Last Vital Signs Temp 97.8 F 05/14/23 12:07 Pulse 73 05/14/23 12:07 Resp 12 05/14/23 12:07 BP 105/61 05/14/23 12:07 Pulse Ox 94 05/14/23 12:07 O2 Del Method Room Air 05/14/23 12:07 BMI result Body Mass Index 31.4 Constitutional - Awake and Alert, No apparent distress Eyes - PERRLA, EOMI Cardiovascular - S1S2, RRR, No edema Respiratory - Normal lung expansion, Normal respiratory effort, No respiratory distress, rhonchi LLL, scattered expiratory wheezing Gastrointestinal - NT / ND; +BS; No rebound or guarding Extremities - no calf tenderness bilaterally, no swelling Musculoskeletal - Normal inspection, normal ROM Skin - Warm/Dry Neurological - Alert & oriented x3, CN II-XII in tact, 5/5 strength BUE and BLE, 2+ patellar reflexes, downgoing babinski, normal finger to nose testing Psychological - Appropriate affect Results Labs 05/14/23 09:48 05/14/23 09:48 Labs: Laboratory Results - last 24 hr 05/14/23 05/14/23 05/14/23 09:07 09:43 09:48 MCV 89.5 MCH 29.7 MCHC 33.2 RDW 12.8 Plt Count 212 D MPV 10.3 Immature Gran % (Auto) 0.2 Neut % (Auto) 66.2 Lymph % (Auto) 20.2 [place] % (Auto) 13.0 H Eos % (Auto) 0.2 Baso % (Auto) 0.2 Lymph # (Auto) 0.9 L [place] # (Auto) 0.6 Eos # (Auto) 0.0 Baso # (Auto) 0.0 Abs Immat Gran (auto) 0.01 Absolute Neuts (auto) 2.8 Absolute Nucleated RBC 0.000 Nucleated RBC % (auto) 0.0 PT 12.9 Whole Blood PT 13.8 H INR 1.1 Whole Blood INR 1.2 H APTT 30.2 Anion Gap 14 Estim Creat Clear Calc 62.7 Estimated GFR 51 POC Glucose 116 H Random Glucose 122 H Calcium Magnesium Total Bilirubin Direct Bilirubin AST ALT Alkaline Phosphatase Total Creatine Kinase Total Protein Albumin Urine Color Urine Appearance Urine pH Ur Specific [place] Urine Protein Urine Glucose (UA) Urine Ketones Urine Blood Urine Nitrite Ur Leukocyte Esterase Urine RBC Urine WBC Ur Squamous Epith Cells Urine Bacteria Hyaline Casts Urine Opiates Screen Urine Fentanyl Screen Ur Barbiturates Screen Ur Phencyclidine Scrn Ur Amphetamines Screen U Benzodiazepines Scrn Urine Cocaine Screen U Marijuana (THC) Screen Ethyl Alcohol 05/14/23 05/14/23 09:48 14:04 MCV MCH MCHC RDW Plt Count MPV Immature Gran % (Auto) Neut % (Auto) Lymph % (Auto) [place] % (Auto) Eos % (Auto) Baso % (Auto) Lymph # (Auto) [place] # (Auto) Eos # (Auto) Baso # (Auto) Abs Immat Gran (auto) Absolute Neuts (auto) Absolute Nucleated RBC Nucleated RBC % (auto) PT Whole Blood PT INR Whole Blood INR APTT Anion Gap Estim Creat Clear Calc Estimated GFR POC Glucose Random Glucose 122 H Calcium 8.8 Magnesium 2.2 Total Bilirubin 0.3 Direct Bilirubin 0.2 AST 40 H ALT 25 Alkaline Phosphatase 68 Total Creatine Kinase 971 H Total Protein 7.4 Albumin 3.6 Urine Color Yellow Urine Appearance Clear Urine pH 5.5 Ur Specific [place] >= 1.030 H Urine Protein 30 (1+) H Urine Glucose (UA) Negative Urine Ketones Negative Urine Blood Negative Urine Nitrite Negative Ur Leukocyte Esterase Negative Urine RBC 0-2 Urine WBC 0-5 Ur Squamous Epith Cells 3-5 Urine Bacteria None Seen Hyaline Casts 0-2 Urine Opiates Screen Not Detected Urine Fentanyl Screen Not Detected Ur Barbiturates Screen Not Detected Ur Phencyclidine Scrn Not Detected Ur Amphetamines Screen Not Detected U Benzodiazepines Scrn Not Detected Urine Cocaine Screen Not Detected U Marijuana (THC) Screen Not Detected Ethyl Alcohol < 10 Imaging Radiologist's Impressions: Impressions Head CT 05/14/23 09:19 IMPRESSION: No acute intracranial process. This critical result was discussed with Dr. Abel Moya at 9:29 AM on 05/14/2023. It was ascertained that the content and urgency of the report was understood at the time of direct communication. Head/Neck CTA 05/14/23 09:37 IMPRESSION: - No acute intracranial findings. Small chronic infarcts within the left frontoparietal lobe. There is new acute neurologic deficit, MRI would be more sensitive in evaluation. - Progressive severe steno-occlusive disease/partial occlusion of the distal left M1 MCA segment and new partial occlusion of the proximal superior left M1 MCA division. There is reconstitution of the more distal left MCA sylvian branches without significant oligemia appreciated within the left MCA territory on the MIP images. Findings discussed with Dr. Moya at 9:58 AM on May 14, 2023 Assessment and Plan (1) Brain TIA: Status: Acute (2) URI (upper respiratory infection): Status: Acute (3) Rhabdomyolysis: Status: Acute (4) Expressive aphasia: Status: Acute (5) Hypotension: Status: Acute Plan 53-year-old male with history of [id number] type 2 diabetes, history of cocaine abuse in remission, history of CVA with left frontal parietal lobe infarct 02/2021 with expressive aphasia to be observed for TIA as well as rhabdomyolysis. #Acute TIA -recurrent sx RUE weakness, expressive aphasia, now resolved -head CT negative for any acute intracranial abnormality. CTA head/neck shows small chronic infarcts within the left frontoparietal lobe as well as progressive severe steno occlusive disease/partial occlusion of the distal left M1 MCA segment and new partial occlusion of the proximal superior left M1 MCA division and reconstitution of the more distal left MCA sylvian branches -Not a candidate for thombolytics or clot retrieval given resolution of symptoms -past nursing bedside swallow eval -Given 162mg asa in ed. Continue 81 mg aspirin and 75 mg Plavix daily per Neurology -lipid panel pending, and atorvastatin 80 mg daily -MRI brain ordered, will need to be premedicated due to claustrophobia -echocardiogram ordered -neurochecks -Neurology input appreciated -monitor on telemetry -IVF ordered to elevate blood pressure given hypotension/soft blood pressures #Hypotension- resolved on admission -likely r/t hypovolemia from poor PO intake -Give additional 1L IV NS bolus, then 1L IV NS @100ml/hr -encourage PO hydration -Monitor VS closely #Acute rhabdomyolysis -suspect r/t viral URI -Aggressive IVF -Follow CK #Acute kidney injury- likely r/t hypoperfusion due to poor PO intake vs rhabdo as above -Creat 1.41, baseline 1.06, BUN 17 -Aggressive IVF as above -Avoid nephrotoxins -Follow BMP #URI -Check viral resp panel -CXR ordered -symptomatic management -albuterol prn # [id number] type 2 diabetes without hyperglycemia -controlled with hgb a1c 6.0% -has no pcp and has not taken metformin in months -POC glucose -Diabetic diet -Humalog ssi DVT prophylaxis- lovenox Full code Quality Stroke Does the patient have a stroke diagnosis?: Yes Reason for No Anti-thrombotic by Day Two: Drug treatment not indicated VTE Prior VTE?: No VTE Risk Level:: Medical - moderate - high VTE Device Contraindication: Treatment Not Indicated VTE Drug Contraindication: N/A - Med Ordered
[2023-05-14 16:41] LABS: Estimated Average Glucose 126 mg/dL
[2023-05-14 16:48] LABS: Cholesterol 147 mg/dL (<200); HDL Cholesterol 35 mg/dL (>40); LDL Cholesterol Calculated 90 mg/dL (<100); Triglycerides 113 mg/dL (<150)
[2023-05-14] MEDS: Enoxaparin Sodium 40 MG/0.4 ML SYRINGE SUBCUT (17:11)
--- NOTE | 2023-05-14 18:56 | PC.NURSE ---
poc 114. pt consumed dinner. resting quietly on stretcher. awaiting bed assignment. call padron within pt reach. plan of care ongoing.
--- NOTE | 2023-05-14 18:56 | PC.NURSE ---
checked pt poc 114. pt consumed dinner. now asking for a pill , c/o BL LE pain from knees down.
[2023-05-14 19:37] LABS: Glucose, Whole Blood 114 mg/dL (60-115)
--- NOTE | 2023-05-14 22:10 | PC.NURSE ---
No insulin given pts POC 93. Plan of care ongoing.
[2023-05-14] MEDS: 0.9 % Sodium Chloride 1,000 ML 125 ML IVCONT (22:11)
[2023-05-14 22:16] LABS: Glucose, Whole Blood 93 mg/dL (60-115)
[2023-05-15 04:00] VITALS: BP 91/71; PULSE 92; RESP 18; TEMP 37.1; O2SAT 98
[2023-05-15 06:40] LABS: MANUAL DIFF FLAG NO
--- NOTE | 2023-05-15 07:00 | CA_ITS ---
Transthoracic Echocardiogram Patient (Last, First, Middle): Hadley Winston, Gender: Male Date of : 1970 Age: 53 Procedure Date: 05/15/2023 Procedure Type: Transthoracic Echocardiogram Location: [facility] Height: 170.18 cm Weight: 90.72 kg BSA: 2.02 m2 Heart Rate: bpm BP: 125 / 61 mmHg Tool And Machine Maintainer: TO Referring MD: Kerri GONZALEZ Symptoms: tia Study Quality: Fair/Contrast ECG Rhythm: Sinus Conclusions: - The left ventricular systolic function is low normal. The visually estimated ejection fraction is between 50-55%. - Aortic valve sclerosis but no significant stenosis. - There is mild mitral annular calcification. Findings Procedure Information Contrast agent, definity, is being given per protocol without apparent complications. Left Ventricle Normal left ventricular cavity size. The left ventricular systolic function is low normal. The visually estimated ejection fraction is between 50-55%. There is no evidence of regional wall motion abnormalities. Diastolic function is normal for age. There is mild septal asymmetric hypertrophy. Right Ventricle Mildly increased right ventricular cavity size. There is normal right ventricular systolic function. Atria Both atria are normal in size. Aortic Valve The aortic valve structure and function is likely normal. There is mild calcification of the aortic valve. There is no aortic valve stenosis. There is no aortic valve regurgitation. Mitral Valve There is mild mitral annular calcification. There is no mitral valve regurgitation. There is no mitral valve stenosis. Pulmonic Valve The pulmonic valve is likely normal. Tricuspid Valve There is trace tricuspid valve regurgitation. There is no evidence of pulmonary hypertension. Great Vessels The asc aorta is normal in size. Small plaque is seen in the sino tubular ridge. Venous The inferior vena cava is normal in size and collapses greater than 50% with inspiration. Pericardium/Pleural There is no evidence of pericardial effusion. Prior Study Comparison No significant change compared to prior study dated: 02/22/2021. Recommendations, Care & Conclusions No obvious valvular pathology seen on this study. Measurements 2D Linear Measurements IVSd: 1.15 0.6-0.9/0.6-1.0 cm LVIDd: 4.86 3.9-5.3/4.2-5.9 cm LVIDd Index: 2.41 2.4-3.2/2.2-3.1 cm/m2 LVIDs: 3.45 2.0-3.6 cm LVPWd: 0.79 0.7-1.1 cm LA Diam: 3.30 2.7-3.8/3.0-4.0 cm LAIDs Index: 1.63 1.5-2.3 cm/m2 LV Mass: 207.77 67-162/88-224 g LV Mass Index: 102.86 43-95/49-115 g/m2 LVOT Diam: 2.30 3.0+(-)1.3 cm 2D Systolic Function EF 4C: 53.90 >55% EF 2C: 52.10 >55% EF BiP: 50.60 >55% Mitral Valve MV Pk E: 0.75 MV PK A: 0.79 MV Decel Time: 172.00 E/A: 1.00 E'Lateral: 9.25 E'Medial: 7.07 E/E' Med: 10.70 E/E' Lat: 8.20 PHT: 50.00 MVA PHT: 4.40 Decel Garvin: 4.39 Aortic Valve AoV Pk Prem: 2.04 AoV Mn Prem: 1.44 AoV VTI: 0.30 AoV Pk Grad: 17.00 Aov Mn Grad: 9.00 JATIN Cont.VTI: 2.87 LVOT LVOT Pk Prem: 1.38 LVOT Mn Prem: 0.85 LVOT VTI: 0.21 LVOT Pk Grad: 8.00 LVOT Mn Grad: 4.00 LVOT Diam: 2.30 LVOT Area: 4.15 Diastolic Function MV Pk E: 0.75 MV Pk A: 0.79 E/A: 1.00 E'Medial: 7.07 E/E' Med: 10.70 E' Laterial: 9.25 E/E' Lat: 8.20 Right Ventricle TAPSE (mm): 20.90 TVS' Prem: 13.10 Tricuspid Valve RA Press: 3.00 Great Vessels Aorta Sinus of Valsalva: 3.90 2.0-3.[address] [place]: 2.17 1.7-3.4 cm Ao Asc: 3.40 2.1-3.4 cm Updated in Other Vendor System with Status of Final Pj Davies MD electronically signed on 05/15/2023 12:41:50 PM with status of Final
[2023-05-15 07:02] LABS: Basophils Percent Auto 0.3 % (0-2); Eosinophils Percent Auto 0.3 % (0-4); Hematocrit 41.3 % (42.0-52.0); Hemoglobin 13.9 g/dl (14.0-18.0); Imm Gran Abs Auto 0.01 X10*3/uL (0.00-0.03); Imm Gran Pct Auto 0.3 % (0.0-0.4); Lymphocytes Absolute Auto 1.4 X10*3/uL (1.2-4.9); Lymphocytes Percent Auto 37.7 % (20-40); Mean Corpuscular HGB Conc 33.7 g/dl (31.0-36.0); Mean Corpuscular Hemoglobin 30.3 pg (27.0-33.0); Mean Platelet Volume 10.6 fL (9.4-12.4); Monocytes Absolute Auto 0.4 X10*3/uL (0.1-1.2); Monocytes Percent Auto 10.2 % (2-11); Neutrophils Percent Auto 51.2 % (45-73); Platelet Count 179 X10*3/uL (160-400); Red Blood Count 4.59 X10*6/uL (4.60-5.80); Red Cell Distribution Width 13.1 % (11.0-16.0); White Blood Count 3.8 X10*3/uL (4.8-10.8)
[2023-05-15 07:07] LABS: Anion Gap 10 (12-20); Blood Urea Nitrogen 10 mg/dL (9-16); Calcium 8.1 mg/dL (8.4-10.2); Carbon Dioxide 24 mmol/L (22-29); Chloride 110 mmol/L (96-108); Creatinine Clr Calc Pharmacy 119.7; Estimated Glomerular Filt Rate > 60; Glucose Random 95 mg/dL (60-115); Potassium 3.6 mmol/L (3.3-5.1); Sodium 140 mmol/L (135-145)
[2023-05-15 07:39] VITALS: BP 124/67; PULSE 93; RESP 18; TEMP 36.3; O2SAT 93
[2023-05-15 07:53] VITALS: BP 124/67; PULSE 93; O2SAT 93
[2023-05-15 08:01] LABS: Glucose, Whole Blood 105 mg/dL (60-115)
[2023-05-15] MEDS: Clopidogrel Bisulfate 75 MG TABLET PO (08:05)
[2023-05-15] MEDS: 0.9 % Sodium Chloride Flush 3 ML SYRINGE IVFLUSH (08:05)
[2023-05-15] MEDS: Aspirin Enteric Coated 81 MG TABLET.DR PO (08:05)
[2023-05-15] MEDS: Atorvastatin Calcium 80 MG TABLET PO (08:05)
--- NOTE | 2023-05-15 10:30 | MHC.CM.PN ---
Patient is here with Expressive Aphasia; CM spoke with Primary Contact/Sister/Nica @ [phone], with the assist of a telephonic [employer] Manager and ARAGON was addressed. Patient lives in a house with his 2 children ages 10 & 13 years of age. PT is not recommending any home PT and CM has initiated and will follow for dc planning. Nica was unsure of who the INNER DI[employer] GR[employer]ER [employer]OL is. CM will follow.
[2023-05-15 11:35] VITALS: BP 126/71; PULSE 98; RESP 18; TEMP 36.2; O2SAT 95
[2023-05-15 11:39] LABS: Glucose, Whole Blood 107 mg/dL (60-115)
[2023-05-15] MEDS: LORazepam 2 MG/ML VIAL 1 MG IVPUSH (11:56)
--- NOTE | 2023-05-15 13:24 | PM.DS ---
DS: Providers Provider Date of Service: 05/15/23 Date of admission: 05/14/23 16:13 Primary care physician: Unknown Physician Consults: 05/14/23 16:15 Consult to Neurology Routine Consulting Provider: [facility] Reason for consultation: tia DS: Diagnosis Discharge Diagnosis (1) Brain TIA: Status: Acute (2) URI (upper respiratory infection): Status: Acute (3) Rhabdomyolysis: Status: Acute (4) Expressive aphasia: Status: Acute (5) Hypotension: Status: Acute DS: Summary Hospital Course Hospital Course: from initial hpi: 53-year-old male with history of [id number] type 2 diabetes, history of cocaine abuse in remission, 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 He states that he was not confused and knew what he was trying to say but was unable to express words. At the same time, noted weakness to the right upper extremity. States that while he was walking he felt like the legs bilaterally were also weak. Denies any facial droop, paresthesias, confusion, headache. However, he does endorse feeling dizzy. He was able to drive himself to the ED and on arrival symptoms had fully resolved. However while in triage, was noted to have a blood pressure of 72/40 with recurrence of symptoms. He was also noted to have right-sided facial droop at that time. Symptoms again lasted for about 15-20 minutes before resolving. Vitals were otherwise noted to be stable. Stroke alert was called. Head CT did not reveal any acute intracranial abnormality which showed small lacunar infarct in the left frontal lobe in the area of prior ischemia. CTA of the head/neck again showed small chronic infarcts within the left frontal parietal lobe as well as progressive severe sudden occlusive disease/partial occlusion of the distal left M1 MCA segment and new partial occlusion of the proximal superior left M1 MCA division with reconstitution of the more distal left MCA branches. Kwabena did discuss case with Neurology and patient was seen while in the ED. Given full resolution of symptoms, he is not a candidate for thrombolytics or clot retrieval. Per Neurology, recommended optimizing diabetes control and increasing blood pressure to prevent hypoperfusion. While in the ED, hematology studies were unremarkable. He did have a mild GINA with creatinine 1.43, baseline around 1.06. BUN 17. Electrolytes normal. Glucose 116. Total CK 971. Trop 4.9. Pt tells me has did not drink any water at all yesterday or this morning as he hasnt been feeling well. States he has a nonproductive cough, wheezing, and chills. He does endorse myalgias, primarily in the bilateral thighs. Denies any fevers, congestion, sore throat, abd pain, n/v, diarrhea, urinary symptoms, palpitations, sob, or chest pain. Denies any sick contacts. Denies any illicit drug use or supplement use. In the ED, received 1L IV NS and 162mg asa. hospital course: Patient was admitted for recurrent right upper extremity weakness, expressive aphasia which completely resolved. His MRI showed acute and chronic left frontoparietal CVA as well as progressive severe stenosis of distal left M1 MCA. He was seen by neurology recommended adding Plavix, continuing aspirin and statin. Patient had mild rhabdomyolysis which resolved with IV fluids, also had hypotension which resolved with IV fluids. For diabetes was continue insulin sliding scale. Metformin will be held for 48hr postcontrast. Patient has no residual deficits and does not require physical therapy. Time Attestation Discharge coordination time: Greater than 30 minutes Quality: Safe Use of Opioids Does Pt have an Active Cancer Diagnosis on the Problem List?: No Quality: Stroke Does the patient have a stroke diagnosis?: Yes Reason for No Anti-thrombotic at DC: N/A - Med Ordered Reason for No Anticoagulant at DC: Drug treatment not indicated Reason Not Initiating IV-Tpa: Drug treatment not indicated Reason for No Anti-thrombotic by Day Two: N/A - Med Ordered Reason for No Statin at DC: N/A - Med Ordered Physical Exam Vital Signs: Vital Signs: Last Vital Signs Temp 97.2 F 05/15/23 11:35 Pulse 98 05/15/23 11:35 Resp 18 05/15/23 11:35 BP 126/71 05/15/23 11:35 Pulse Ox 95 05/15/23 11:35 O2 Del Method Room Air 05/15/23 11:35 BMI result Body Mass Index 31.4 General: AO X 3, no acute distress Resp: CTA bilateral, no accessory muscles used CVS: S1,S2,RRR GI: soft, non tender, non distended Neuro: motor grossly intact, alert Psych: appropriate affect, appropriate insight DS: Data Data Completed and Pending Labs on day of discharge: Laboratory Results - last 24 hr 05/14/23 05/14/23 05/14/23 09:43 09:48 14:04 WBC RBC Hgb Hct MCV MCH MCHC RDW Plt Count MPV Immature Gran % (Auto) Neut % (Auto) Lymph % (Auto) [place] % (Auto) Eos % (Auto) Baso % (Auto) Lymph # (Auto) [place] # (Auto) Eos # (Auto) Baso # (Auto) Abs Immat Gran (auto) Absolute Neuts (auto) Absolute Nucleated RBC Nucleated RBC % (auto) Whole Blood PT 13.8 H Whole Blood INR 1.2 H Sodium Potassium Chloride Carbon Dioxide Anion Gap BUN Creatinine Estim Creat Clear Calc Estimated GFR POC Glucose Random Glucose Estimat Average Glucose 126 Hemoglobin A1c % 6.0 Calcium Total Creatine Kinase Triglycerides 113 Cholesterol 147 LDL Cholesterol, Calc 90 HDL Cholesterol 35 L Urine Color Yellow Urine Appearance Clear Urine pH 5.5 Ur Specific [place] >= 1.030 H Urine Protein 30 (1+) H Urine Glucose (UA) Negative Urine Ketones Negative Urine Blood Negative Urine Nitrite Negative Ur Leukocyte Esterase Negative Urine RBC 0-2 Urine WBC 0-5 Ur Squamous Epith Cells 3-5 Urine Bacteria None Seen Hyaline Casts 0-2 Urine Opiates Screen Not Detected Urine Fentanyl Screen Not Detected Ur Barbiturates Screen Not Detected Ur Phencyclidine Scrn Not Detected Ur Amphetamines Screen Not Detected U Benzodiazepines Scrn Not Detected Urine Cocaine Screen Not Detected U Marijuana (THC) Screen Not Detected 05/14/23 05/14/23 05/15/23 18:55 22:08 06:13 WBC 3.8 L RBC 4.59 L Hgb 13.9 L Hct 41.3 L MCV 90.0 MCH 30.3 MCHC 33.7 RDW 13.1 Plt Count 179 MPV 10.6 Immature Gran % (Auto) 0.3 Neut % (Auto) 51.2 Lymph % (Auto) 37.7 [place] % (Auto) 10.2 Eos % (Auto) 0.3 Baso % (Auto) 0.3 Lymph # (Auto) 1.4 [place] # (Auto) 0.4 Eos # (Auto) 0.0 Baso # (Auto) 0.0 Abs Immat Gran (auto) 0.01 Absolute Neuts (auto) 2.0 Absolute Nucleated RBC 0.000 Nucleated RBC % (auto) 0.0 Whole Blood PT Whole Blood INR Sodium 140 Potassium 3.6 Chloride 110 H Carbon Dioxide 24 Anion Gap 10 L BUN 10 Creatinine 0.75 Estim Creat Clear Calc 119.7 Estimated GFR > 60 POC Glucose 114 93 Random Glucose 95 Estimat Average Glucose Hemoglobin A1c % Calcium 8.1 L D Total Creatine Kinase 578 H Triglycerides Cholesterol LDL Cholesterol, Calc HDL Cholesterol Urine Color Urine Appearance Urine pH Ur Specific [place] Urine Protein Urine Glucose (UA) Urine Ketones Urine Blood Urine Nitrite Ur Leukocyte Esterase Urine RBC Urine WBC Ur Squamous Epith Cells Urine Bacteria Hyaline Casts Urine Opiates Screen Urine Fentanyl Screen Ur Barbiturates Screen Ur Phencyclidine Scrn Ur Amphetamines Screen U Benzodiazepines Scrn Urine Cocaine Screen U Marijuana (THC) Screen 05/15/23 05/15/23 07:52 11:34 WBC RBC Hgb Hct MCV MCH MCHC RDW Plt Count MPV Immature Gran % (Auto) Neut % (Auto) Lymph % (Auto) [place] % (Auto) Eos % (Auto) Baso % (Auto) Lymph # (Auto) [place] # (Auto) Eos # (Auto) Baso # (Auto) Abs Immat Gran (auto) Absolute Neuts (auto) Absolute Nucleated RBC Nucleated RBC % (auto) Whole Blood PT Whole Blood INR Sodium Potassium Chloride Carbon Dioxide Anion Gap BUN Creatinine Estim Creat Clear Calc Estimated GFR POC Glucose 105 107 Random Glucose Estimat Average Glucose Hemoglobin A1c % Calcium Total Creatine Kinase Triglycerides Cholesterol LDL Cholesterol, Calc HDL Cholesterol Urine Color Urine Appearance Urine pH Ur Specific [place] Urine Protein Urine Glucose (UA) Urine Ketones Urine Blood Urine Nitrite Ur Leukocyte Esterase Urine RBC Urine WBC Ur Squamous Epith Cells Urine Bacteria Hyaline Casts Urine Opiates Screen Urine Fentanyl Screen Ur Barbiturates Screen Ur Phencyclidine Scrn Ur Amphetamines Screen U Benzodiazepines Scrn Urine Cocaine Screen U Marijuana (THC) Screen Discharge Plan Discharge Anticipated Discharge Date/Time: 05/15/23 13:19 Patient Disposition: Home, Self-Care Discharge Diagnosis: cva Referrals: Physician,Unknown J [Primary Care Provider] - 1 Week Discharge Medications: New clopidogrel 75 mg Tablet 75 mg PO DAILY Qty: 30 0RF Continued atorvastatin 40 mg Tablet 40 mg PO BEDTIME Qty: 30 0RF aspirin 81 mg Tablet,Delayed Release (Dr/Ec) 81 mg PO DAILY Qty: 30 0RF Held metformin 500 mg tablet 500 mg PO BID Qty: 60 0RF Hold Instructions: Resume on 05/16/23. Discharge Orders: Discharge Order (Routine); Ordered 05/15/23 Ordered By: Juanjo Byrd Diet: Advance to usual diet Activity on Discharge: As tolerated Stand Alone Forms: Patient Portal Discharge page Care Plan Goals: prevent strokes Health Concerns: cva Plan of Treatment: add plavix, continue asa, lipitor Assessment: see above
--- NOTE | 2023-05-15 13:35 | MHC.CM.PN ---
Patient has been medically cleared for dc to home today, self care.
--- NOTE | 2023-05-15 13:56 | MHC.CM.PN ---
CM provided Patient with a list of PCPs.
--- NOTE | 2023-05-15 16:30 | MHC.STROKE ---
LATE ENTRY FOR 05/15/23 1315. I MET WITH THE PATIENT, HE IS KNOWN TO THE STROKE SERVICE FROM A PREVIOUS STROKE IN 2020. WE REVIEWED HIS NEW STROKE DIAGNOSIS AND SYMPTOMS ASSOCIATED WITH THE STROKE THIS TIME. I ENCOURAGED HIM TO CALL 911 IF ANY STROKE SYMPTOMS RETURN. HE DENIES ANY COCAINE USE HIS DRUG SCREEN WAS NEGATIVE. HE MENTIONED THAT HE HASN'T SEEN HIS PCP DR. EVANS AND I NOTIFIED THOMAS OCCASIONAL CAREGIVER AND SHE GAVE HIS A LIST OF PCP'S. HE WAS CLEARED BY PT. NO SERVICES. WE REVIEWED THE STROKE EDUCATION BOOKLET AND I PROVIDED ENCOURAGEMENT. HE UNDERSTANDS THAT HE IS NOW TO TAKE PLAVIX IN ADDITION TO HIS ASPIRIN AND WHY. M1 STENOSIS.
== END 2023-05-15 13:59 | disposition home or self-care (01) | DRG 45 ==
LOC: HO.ED 10:32 → HO.EDOVER 16:30 → HO.IMC 19:29
PROVIDERS: Admitting Provider Physician Assistant; Emergency Provider Emergency Medicine Emergency Medical Services; Visit Provider Internal Medicine
DX: I63.312 Cerebral infarction due to thrombosis of left middle cerebral artery (principal); N17.9 Acute kidney failure, unspecified; M62.82 Rhabdomyolysis; I95.9 Hypotension, unspecified; E11.9 Type 2 diabetes mellitus without complications; R29.700 NIHSS score 0; E86.1 Hypovolemia; R29.810 Facial weakness; G83.21 Monoplegia of upper limb affecting right dominant side; I69.320 Aphasia following cerebral infarction; Z79.02 Long term (current) use of antithrombotics/antiplatelets; Z79.82 Long term (current) use of aspirin; Z79.84 Long term (current) use of oral hypoglycemic drugs
CPT/HCPCS: 36415; 70450; 70496; 70498; 70551; 71045; 80048; 80061; 80076; 80307; 81001; 82550; 82947; 83036; 83735; 84484; 85025; 85610; 85730; 93005; 93306; 96361; 96372; 96374; 97162; 97166; 99222; 99285; J1650; J2060; Q9957; Q9967

== ENCOUNTER → 2023-05-14 09:05 | Outpatient (BNV) | payer MEDICAID, SELFPAY | PROVIDERS: Emergency Provider Emergency Medicine Emergency Medical Services; Visit Provider Internal Medicine | DX: I63.9 Cerebral infarction, unspecified (principal) | CPT/HCPCS: 93010 ==

== ENCOUNTER 2023-05-14 16:13 | Outpatient (BNV) | payer MEDICAID, SELFPAY | END 2023-05-15 07:00 | PROVIDERS: Admitting Provider Physician Assistant; Emergency Provider Emergency Medicine Emergency Medical Services; Visit Provider Internal Medicine | DX: I34.81 Nonrheumatic mitral (valve) annulus calcification (principal) | CPT/HCPCS: 93306 ==

== ENCOUNTER → 2023-05-14 16:13 | Outpatient (BNV) | payer MEDICAID, SELFPAY | PROVIDERS: Admitting Provider Physician Assistant; Emergency Provider Emergency Medicine Emergency Medical Services; Visit Provider Physician Assistant | DX: G45.9 Transient cerebral ischemic attack, unspecified (principal); J06.9 Acute upper respiratory infection, unspecified; M62.82 Rhabdomyolysis; R47.01 Aphasia; I95.9 Hypotension, unspecified | CPT/HCPCS: 99223; 99239 ==